=== PATIENT | female | born 1945 | race Caucasian/White ===

== ENCOUNTER 2021-07-25 00:51 | Outpatient (RCR) | payer MEDICARE, OTHER, SELFPAY ==
[2021-07-23] MEDS: Normal Saline Flush 10 ML SYR IVP (07:21)
[2021-07-23 07:49] LABS: Absolute Basophil Count 0.02 10^3/uL (0.0-0.2); Absolute Eosinophil Count 0.02 10^3/uL (0.0-0.7); Absolute Lymphocyte Count 0.76 10^3/uL (1.2-3.4); Absolute Neutrophil Count 4.46 10^3/uL (1.2-6.7); Basophils % 0.3; Eosinophils % 0.3; HCT 31.5 % (36.0-46.0); HGB 11.4 g/dL (11.2-15.7); Immature Grans % 0.3; Lymphocytes % 12.7; MCH 32.6 pg (27.0-33.0); MCHC 36.2 % (32.0-36.0); MPV 8.3 fL (8.0-11.0); Monocytes % 11.7; Neutrophils % 74.7; Nucleated RBC 0 %; Platelet Count 244 10^3/uL (130-400); RDW 12.4 % (11.7-14.6); WBC 5.98 10^3/uL (4.4-10.8)
[2021-07-23 08:02] LABS: ALT 20 U/L (14-59); AST 21 U/L (15-37); Alkaline Phosphatase 88 U/L (46-116); Anion Gap 8.3 mmol/L (3-11); BUN 15 mg/dL (7-18); Bilirubin, Total 0.9 mg/dL (0.2-1.0); CO2 25.7 mmol/L (21.0-32.0); CREATININE 0.6 mg/dL (0.55-1.02); Calcium 8.7 mg/dL (8.5-10.1); Chloride 82 mmol/L (98-107); Glucose 94 mg/dL (74-106); LDH 219 U/L (81-234); Potassium 3.6 mmol/L (3.5-5.1); Total Protein 7.3 g/dL (6.4-8.2)
[2021-07-23 08:16] LABS: Sodium 116 mmol/L (136-145)
[2021-07-23 18:36] LABS: Diff Comment Agrees w/ Instrument; RBC Morphology Normal
[2021-07-25] MEDS: Normal Saline Flush 10 ML SYR IVP (08:25)
[2021-07-25 08:52] LABS: Sodium 122 mmol/L (136-145)
== END 2021-08-04 23:59 | disposition home or self-care (01) ==
LOC: INF 00:51
PROVIDERS: Nurse Practitioner Adult Health; PCP Internal Medicine; Visit Provider Internal Medicine Medical Oncology
DX: C34.12 Malignant neoplasm of upper lobe, left bronchus or lung (principal); Z45.2 Encounter for adjustment and management of vascular access device
CPT/HCPCS: 36591; 80053; 83615; 84295; 85025

== ENCOUNTER 2021-09-01 02:28 | Outpatient (RCR) | payer MEDICARE, OTHER, SELFPAY ==
[2021-08-11] MEDS: Normal Saline Flush 10 ML SYR IVP (08:30)
[2021-08-11 08:40] LABS: Abs Immature Grans 0.05 10^3/uL (0.0-0.06); Absolute Basophil Count 0.02 10^3/uL (0.0-0.2); Absolute Eosinophil Count 0.02 10^3/uL (0.0-0.7); Absolute Lymphocyte Count 0.62 10^3/uL (1.2-3.4); Absolute Monocyte Count 1.32 10^3/uL (0.1-0.8); Absolute Neutrophil Count 1.41 10^3/uL (1.2-6.7); Basophils % 0.6; Eosinophils % 0.6; HCT 24.3 % (36.0-46.0); HGB 8.2 g/dL (11.2-15.7); Immature Grans % 1.5; MCH 32.7 pg (27.0-33.0); MCHC 33.7 % (32.0-36.0); MCV 96.8 fL (80-95); MPV 8.2 fL (8.0-11.0); Monocytes % 38.4; Neutrophils % 40.9; Nucleated RBC 0 %; Platelet Count 302 10^3/uL (130-400); RBC 2.51 10^6/uL (3.93-5.22); RDW 13.4 % (11.7-14.6); RDW-SD 47.7 fL; WBC 3.44 10^3/uL (4.4-10.8)
[2021-08-11 09:08] LABS: ALT 28 U/L (14-59); AST 20 U/L (15-37); Alkaline Phosphatase 119 U/L (46-116); Anion Gap 9.3 mmol/L (3-11); BUN 12 mg/dL (7-18); Bilirubin, Total 0.5 mg/dL (0.2-1.0); CO2 25.7 mmol/L (21.0-32.0); CREATININE 0.7 mg/dL (0.55-1.02); Calcium 8.6 mg/dL (8.5-10.1); Chloride 99 mmol/L (98-107); FREE T4 1.63 ng/dL (0.76-1.46); Glucose 122 mg/dL (74-106); Magnesium 1.8 mg/dL (1.8-2.4); Potassium 3.7 mmol/L (3.5-5.1); Sodium 134 mmol/L (136-145); TSH 1.49 uIU/mL (0.36-3.74); Total Protein 6.7 g/dL (6.4-8.2)
[2021-08-18] MEDS: Normal Saline Flush 10 ML SYR IVP (09:49)
[2021-08-18 10:05] LABS: HCT 24.6 % (36.0-46.0); HGB 8.4 g/dL (11.2-15.7); MCH 32.6 pg (27.0-33.0); MCHC 34.1 % (32.0-36.0); MCV 95.3 fL (80-95); MPV 8.4 fL (8.0-11.0); Nucleated RBC 0 %; Platelet Count 250 10^3/uL (130-400); RBC 2.58 10^6/uL (3.93-5.22); RDW 14.5 % (11.7-14.6); RDW-SD 50.1 fL; WBC 6.61 10^3/uL (4.4-10.8)
[2021-08-18 10:22] LABS: Absolute Lymphocyte Count 2.05 10^3/uL (1.2-3.4); Absolute Neutrophil Count 3.17 10^3/uL (1.2-6.7); Atypical Lymphocytes % 1; Bands % 3
[2021-08-18 10:23] LABS: Absolute Basophil Count 0.07 10^3/uL (0.0-0.2); Absolute Eosinophil Count 0.07 10^3/uL (0.0-0.7); Absolute Monocyte Count 0.46 10^3/uL (0.1-0.8); Diff Comment Manual Differential; Other Cells % 12; RBC Morphology Normal
[2021-08-18 10:29] LABS: ALT 26 U/L (14-59); AST 21 U/L (15-37); Albumin 3.3 g/dL (3.4-5.0); Alkaline Phosphatase 111 U/L (46-116); Anion Gap 7.6 mmol/L (3-11); BUN 9 mg/dL (7-18); Bilirubin, Total 0.7 mg/dL (0.2-1.0); CO2 28.4 mmol/L (21.0-32.0); CREATININE 0.6 mg/dL (0.55-1.02); Calcium 8.3 mg/dL (8.5-10.1); Chloride 95 mmol/L (98-107); FREE T4 1.39 ng/dL (0.76-1.46); Glucose 98 mg/dL (74-106); LDH 278 U/L (81-234); Magnesium 1.3 mg/dL (1.8-2.4); Potassium 3.2 mmol/L (3.5-5.1); Sodium 131 mmol/L (136-145); TSH 2.99 uIU/mL (0.36-3.74)
[2021-08-18 10:37] LABS: Iron 70 ug/dL (50-170); Total Iron Binding Capacity 224 ug/dL (250-450)
[2021-08-18 11:06] LABS: Ferritin 426 ng/mL (8-252); Folate 8.8 ng/mL (8.6-20.0); Vitamin B12 377 pg/mL (193-986)
== END 2021-09-04 23:59 | disposition home or self-care (01) ==
LOC: INF 02:28
PROVIDERS: PCP Internal Medicine; Visit Provider Internal Medicine Medical Oncology
DX: C34.12 Malignant neoplasm of upper lobe, left bronchus or lung (principal); Z79.899 Other long term (current) drug therapy; Z45.2 Encounter for adjustment and management of vascular access device
CPT/HCPCS: 36591; 80053; 82607; 82728; 82746; 83540; 83550; 83615; 83735; 84439; 84443; 85025

== ENCOUNTER 2021-09-15 01:46 | Outpatient (RCR) | payer MEDICARE, OTHER, SELFPAY ==
[2021-09-08 08:17] LABS: Abs Immature Grans 0.11 10^3/uL (0.0-0.06); Absolute Basophil Count 0.03 10^3/uL (0.0-0.2); Absolute Eosinophil Count 0.04 10^3/uL (0.0-0.7); Absolute Lymphocyte Count 1.35 10^3/uL (1.2-3.4); Absolute Monocyte Count 1.07 10^3/uL (0.1-0.8); Absolute Neutrophil Count 1.28 10^3/uL (1.2-6.7); Basophils % 0.8; HCT 24.5 % (36.0-46.0); HGB 8.2 g/dL (11.2-15.7); Immature Grans % 2.8; Lymphocytes % 34.8; MCH 32.7 pg (27.0-33.0); MCHC 33.5 % (32.0-36.0); MCV 97.6 fL (80-95); MPV 8.6 fL (8.0-11.0); Monocytes % 27.6; Nucleated RBC 0 %; Platelet Count 240 10^3/uL (130-400); RBC 2.51 10^6/uL (3.93-5.22); RDW 15.5 % (11.7-14.6); RDW-SD 55.8 fL; WBC 3.88 10^3/uL (4.4-10.8)
[2021-09-08] MEDS: Normal Saline Flush 10 ML SYR IVP (08:21)
[2021-09-08 08:38] LABS: ALT 23 U/L (14-59); AST 27 U/L (15-37); Albumin 3.2 g/dL (3.4-5.0); Alkaline Phosphatase 112 U/L (46-116); Anion Gap 6.2 mmol/L (3-11); BUN 14 mg/dL (7-18); Bilirubin, Total 0.3 mg/dL (0.2-1.0); CO2 26.8 mmol/L (21.0-32.0); CREATININE 0.6 mg/dL (0.55-1.02); Calcium 8.3 mg/dL (8.5-10.1); Chloride 95 mmol/L (98-107); FREE T4 1.22 ng/dL (0.76-1.46); Glucose 89 mg/dL (74-106); Magnesium 1.6 mg/dL (1.8-2.4); Sodium 128 mmol/L (136-145); TSH 2.81 uIU/mL (0.36-3.74); Total Protein 6.6 g/dL (6.4-8.2)
[2021-09-15] MEDS: Normal Saline Flush 10 ML SYR IVP (08:20)
[2021-09-15 08:30] LABS: Abs Immature Grans 0.03 10^3/uL (0.0-0.06); Absolute Basophil Count 0.03 10^3/uL (0.0-0.2); Absolute Eosinophil Count 0.03 10^3/uL (0.0-0.7); Absolute Lymphocyte Count 1.07 10^3/uL (1.2-3.4); Absolute Neutrophil Count 3.92 10^3/uL (1.2-6.7); Basophils % 0.5; Eosinophils % 0.5; HCT 25.5 % (36.0-46.0); HGB 8.8 g/dL (11.2-15.7); Immature Grans % 0.5; Lymphocytes % 17.6; MCH 32.8 pg (27.0-33.0); MCHC 34.5 % (32.0-36.0); MCV 95.1 fL (80-95); MPV 8.7 fL (8.0-11.0); Monocytes % 16.4; Neutrophils % 64.5; Nucleated RBC 0 %; Platelet Count 281 10^3/uL (130-400); RBC 2.68 10^6/uL (3.93-5.22); RDW 14.8 % (11.7-14.6); RDW-SD 51.9 fL; WBC 6.08 10^3/uL (4.4-10.8)
[2021-09-15 09:09] LABS: ALT 23 U/L (14-59); AST 19 U/L (15-37); Albumin 3.2 g/dL (3.4-5.0); Alkaline Phosphatase 108 U/L (46-116); BUN 13 mg/dL (7-18); Bilirubin, Total 0.3 mg/dL (0.2-1.0); CREATININE 0.5 mg/dL (0.55-1.02); Calcium 8.3 mg/dL (8.5-10.1); Chloride 93 mmol/L (98-107); FREE T4 1.05 ng/dL (0.76-1.46); Glucose 96 mg/dL (74-106); Potassium 4.2 mmol/L (3.5-5.1); Total Protein 6.5 g/dL (6.4-8.2)
[2021-09-15 09:10] LABS: Sodium 125 mmol/L (136-145)
[2021-09-15 10:32] LABS: Magnesium 1.6 mg/dL (1.8-2.4)
== END 2021-10-04 23:59 | disposition home or self-care (01) ==
LOC: INF 01:46
PROVIDERS: PCP Internal Medicine; Visit Provider Internal Medicine Medical Oncology
DX: C34.12 Malignant neoplasm of upper lobe, left bronchus or lung (principal); Z79.899 Other long term (current) drug therapy; Z45.2 Encounter for adjustment and management of vascular access device
CPT/HCPCS: 36591; 80053; 83735; 84439; 84443; 85025

== ENCOUNTER 2021-10-27 02:33 | Outpatient (RCR) | payer MEDICARE, OTHER, SELFPAY ==
--- OUTSIDE RECORDS SUMMARY | 2021-10-06 01:18 | XMS_ITS ---
:1945 Author Care Team Providers Name Role Phone JEAN-PIERRE CUEVAS MD Primary Care Provider [phone] SAPNA MELISSA MD General Surgeon [phone] CHIKA HAYDEN MD Urologist [phone] Allergies Code Code System Name Reaction Severity Status Onset 019116 RxNorm Chantix ? ? Active ? 534981 RxNorm Oxycontin ? ? Active ? 043759 RxNorm Vicodin ? ? Active ? Medications Name Status Start Date Stop Date ? ? acetaminophen 500 mg tablet Active ? Not available Take 1 tablet every 6 hours by oral route as needed. amlodipine 5 mg tablet Active ? Not avail able amoxicillin 500 mg capsule Completed 09/10/200410/01 1 Cap: TID Arimidex 1 mg tablet Completed 02/18/2010 02/18/2010 1 (one) Tablet: daily Aspir-81 mg tablet,delayed release Completed 11/10/2012 04/22/[address]: daily atorvastatin 10 mg tablet Completed ? 2017 atorvastatin 20 mg tablet Active ? Not av ailable cetirizine 10 mg tablet Completed 05/06/2012 04/22/20 15 1 Tablet: as needed Chantix Starting Month Box 0.5 mg (11)-1 mg (42) tablets in dose pack Completed 06/23/2011 06/23/2011 1 Tablet: daily ciprofloxacin 250 mg tablet Completed ? 10/05 2 tabs now ciprofloxacin 500 mg tablet Completed ? 10/05 Take 1 tablet every 12 hours by oral route. cyclobenzaprine 10 mg tablet Completed ? 05/2018 Elidel 1 % topical cream Completed 09/21/2005 006 1 (one) ftu: BID fexofenadine 180 mg tablet Completed 06/24/200906/24 1 (one) Tablet: daily Flovent HFA 44 mcg/actuation aerosol inhaler Active ? Not available Inhale 2 puffs twice a day by inhalation route. fluticasone propionate 50 Completed ? 2017 mcg/actuation nasal spray,suspension hydrochlorothiazide 25 mg tablet Active ? Not available hydrocodone 5 mg-acetaminophen 325 mg tablet Completed 05/06/2012 1 (one) Tablet: every four to six hours as needed ibuprofen 200 mg tablet Completed ? 10/19/19 20 Take 1 tablet every 6 hours by oral route as needed. ibuprofen 800 mg tablet Completed 02/18/2010 02/19/20 10 1 Tablet: Three times daily as needed levothyroxine 100 mcg tablet Completed ? 05/2018 levothyroxine 112 mcg tablet Active ? Not available methylprednisolone 4 mg tablets in Completed ? 02/16/2018 a dose pack metoprolol tartrate 50 mg tablet Active ? Not available Miralax 17 gram oral powder packet Completed 12/26/2015 12/26/2015 1 (one) Packet: daily as needed Mylanta Maximum Strength 400 mg-400 mg-40 mg/5 mL oral suspe nsion Completed 09/11/2013 09/11/2013 1 Suspension: as needed nicotine 21 mg/24 hr daily transdermal patch Completed 04/06/2007 1 (one) Patch 24HR: Daily omeprazole 40 mg capsule,delayed release Active ? Not available Take 1 capsule every day by oral route. Patanol 0.1 % eye drops Completed 07/27/2006 07/27/19 07 1-2 drop(s): BID Percocet 5 mg-325 mg tablet Completed 06/24/200906/07 1-2 Tablet: every 4-6 hours as needed for pain phenazopyridine 95 mg tablet Completed ? 2 tabs now potassium chloride ER 20 mEq Active ? Not available tablet,extended release(part/cryst) Protonix 40 mg tablet,delayed release Completed 07/23/2010 07/23/2010 1 (one) Tab DR: daily Readi-Cat 2 2 % (w/v) oral Completed ? suspension Senna Laxative 8.6 mg tablet Completed 05/07/201506/2014 2 (two) Tablet Tablet: nightly tramadol 50 mg tablet Completed ? 02/16/2018 tretinoin 0.025 % topical cream Completed 02/03/2009 06/03/2009 Ventolin HFA 90 mcg/actuation aerosol inhaler Active ? Not available Inhale 2 puffs every 4 hours by inhalation route as needed. Wellbutrin SR 100 mg tablet, 12 hr sustained-release Completed ? 10/19/2019 Take 1 tablet twice a day by oral route. Zithromax Z-Frank 250 mg tablet Completed 05/06/2012 1 Tablet: See note below zolpidem 10 mg tablet Completed ? 10/19/2019 Zyban 150 mg tablet,extended release Completed 10/01/2008 10/01/2008 1 Tablet ER 12HR: See NOtes Problems Name Status Onset Date Source ? Non-small Cell Lung Cancer Active 09/14/2019 ? Chronic Obstructive Lung Disease Active 09/14/2019 ? Gastroesophageal Reflux Disease Active 09/14/2019 ? Blood in Urine Active 09/14/2019 ? Disorder of Thyroid Gland Active 10/05/2019 ? Urinary Tract Infectious Disease Active 10/05/2019 ? Urinary Incontinence Active 10/05/2019 ? History of Calculus of Kidney Active 10/05/2019 ? Neoplasm of Bladder Active 10/26/2019 ? Primary Malignant Neoplasm of Female Active ? History Breast Hypothyroidism Active ? History Hyperlipidemia Active ? History Severe Obesity Active ? History Overweight Active ? History Nicotine Dependence Active ? History Nerve Root Disorder Active ? History Chronic Allergic Conjunctivitis Active ? History Hypertensive Disorder Active ? History Premature Beats Active ? 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 History Chronic Constipation Active ? History Atopic Dermatitis Active ? History Contact Dermatitis Active ? History Itching Active ? History Low Back Pain Active ? History Bone Density Finding Active ? History Eruption Active ? History Disorder of Hyperalimentation Active ? Hi story Abdominal Pain Active ? History Inconclusive Evaluation Finding Active ? History Abnormal Findings on Diagnostic Imaging Active ? History of Breast Administration of Pneumococcal Vaccine Active ? History Disorder of Skin And/or Subcutaneous Active ? History Tissue Adult Health Examination Active ? History Screening Mammography Active ? History Pain of Left Hip Joint Active ? History Procedure by Method Active ? History Trigger Finger of Right Hand Active ? His tory Adhesive Capsulitis of Left Shoulder Active ? History Menopause Present Active ? History Respiratory Crackles Active ? History Cardiac Arrhythmia Active ? History Procedures Date Name Performed by ? 10/26/2019 Cystourethroscopy, with Information not available Fulguration/resection of Bladder Tumors (Surg) 03/30/2006 Cholecystectomy Information not avai lable 06/07/1970 Tubal Ligation Information not avai lable ? Thoracoscopic Surgical Lobectomy Using V ideo-assisted Guidance Information not available Notes: Dr. Torres at [place] ? Appendectomy Information not avai lable ? Lumpectomy Information not avai lable Notes: December 2004, Right breast, follo wed by radiation 02/16/2018 Unlisted Imaging Order [facility] (Internal) [address] [place] [address] (Work Place) 09/19/2019 CT, Urogram [facility] (Internal) [address] [place] [address] (Work Place) Results Lab Results Date Name Specimen Result Interpretation Description Value Range Status Address ? 08/05/2020 CBC W/ Auto BLD ? Wbc 6.8 10*3/uL 5.0-10.0 F inal [place] Diff 10*3/uL [facility] L [facility] (Internal) : [address] ? ? BLD Low Rbc 3.65 10*6/uL 4.10-5.30 Final N orth 10*6/uL [facility] (Internal) : [address] t ? ? BLD Low Hgb 11.0 g/dL 12.0-16.0 Final Nort h g/dL [facility] L [facility] (Internal) : [address] t ? ? BLD Low Hct 32.9 % 37.0-47.0 Final [facility] L ab (Internal) : [address] t ? ? BLD ? Mcv 90.1 fL 80.0-96.0 Final [facility] L ab (Internal) : [address] t ? ? BLD ? Mch 30.1 pg 26.0-32.0 Final [facility] L [facility] (Internal) : [address] t ? ? BLD ? Mchc 33.4 g/dL 31.0-35.0 Final Nort h g/dL [facility] L [facility] (Internal) : [address] t ? ? BLD ? Rdw 12.7 % 11.5-14.5 Final [facility] L [facility] (Internal) : [address] t ? ? BLD ? Plt 243 10*3/uL 130-450 Final Nort h 10*3/uL [facility] L [facility] (Internal) : [address] ? ? BLD ? Anc 4.58 10*3/uL ? Final Nort h [facility] (Internal) : [address] ? ? BLD ? Nlr 3.16 0.00-3.20 Final [facility] L [facility] (Internal) : [address] t ? ? BLD ? Neutro 67.5 % 40.0-75.0 Final [facility] L ab (Internal) : [address] ? ? BLD ? Lymph 21.3 % 20.0-50.0 Final [facility] L [facility] (Internal) : [address] ? ? BLD ? [place] 9.1 % 2.0-10.0 Final [facility] L ab (Internal) : [address] t ? ? BLD ? Eos 1.0 % 1.0-6.0 % Final [facility] L ab (Internal) : [address] t ? ? BLD ? Baso 0.7 % 0.0-1.0 % Final [facility] L [facility] (Internal) : [address] t ? ? BLD ? Ig 0.4 % 0.0-0.9 % Final [facility] (Internal) : [address] 08/05/2020 CMP, Serum S ? g/r 99 mg/dL 74-106 Final North or Plasma mg/dL [facility] (Internal) : [address] ? ? S ? Bun 13 mg/dL 7-17 Final [facility] mg/dL [facility] (Internal) : [address] t ? ? S ? Crea 0.70 mg/dL 0.52-1.04 Final Nor th mg/dL [facility] (Internal) : [address] ? ? S ? Ca 9.3 mg/dL 8.4-10.2 Final North mg/dL [facility] (Internal) : [address] ? ? S Low Na 130 mmol/L 137-145 Final North mmol/L [facility] (Internal) : [address] t ? ? S ? K 4.4 mmol/L 3.5-5.1 Final [place] mmol/L [facility] (Internal) : [address] t ? ? S Low Cl 95 mmol/L 98-107 Final [place] mmol/L [facility] (Internal) : [address] t ? ? S ? Tco2 25.0 mmol/L 22.0-30.0 Final No rth mmol/L [facility] : [address] t ? ? S ? Tp 7.2 g/dL 6.3-8.2 Final [place] g/dL [facility] : [address] t ? ? S ? Alb 4.2 g/dL 3.5-5.0 Final [facility] g/dL [facility] : [address] t ? ? S ? Tbil <1.0 mg/dL 0.2-1.3 Final [place] mg/dL [facility] (Internal) : [address] t ? ? S ? Alp 90 U/L 38-126 Final [facility] U/L [facility] (Internal) : [address] t ? ? S ? Alt 20 U/L 9-52 U/L Final [place] (Sgpt) [facility] (Internal) : [address] t ? ? S High Ast 37 U/L 14-36 U/L Final [place] (Sgot) [facility] (Internal) : [address] 08/05/2020 D-dimer, PLASMA High Dimq 0.69 mg/L 0.00-0.50 Final [place] Quant, mg/L [facility] (Internal[facility] : [address] 08/05/2020 BNP (B-type S High Nt-probnp 1580 pg/mL 0-125 Final [place] Natriuretic pg/mL Count ry Peptide), Hospita l Lab Prohormone (Inter nal): N-terminal, [address] [place] Immunoassay , Blood 08/05/2020 Troponin I, S ? Trop <0.06 NG/mL 0.00-0.06 Final [place] Serum or NG/mL [facility] (Internal[facility] : [address] 11/06/2019 Culture UR ? Final microbiology ? Final [place] ([place] results Country Count), Hospital Lab Urine (Internal) : [address] t 11/06/2019 Urinalysis, Urine ? Color Yellow ? ? P _urology: Dipstick, clean [address] catch [facility] [employer], [place] ? ? Urine ? Appearanc Clear ? ? P_urol ogy: clean e [address], [place] ? ? Urine ? Glucose Normal ? ? P_urolog y: clean [address], [place] ? ? Urine ? Bilirubin Negative ? ? P_ur ology: clean [address], [place] ? ? Urine ? Ketones Negative ? ? [facility] ? ? Urine ? Specific 1.015 ? ? P_urolo gy: clean [place] [address] l [employer] [facility] ? ? Urine ? Blood Moderate ? ? P_urolog y: clean [facility] ? ? Urine ? Ph 7.0 ? ? P_urology: clean [facility] ? ? Urine ? Protein Negative ? ? P_urol ogy: clean [address] [employer], [place] ? ? Urine ? Urobilino 0.2 ? ? P_urol ogy: clean gen [facility] ? ? Urine ? Nitrite negative ? ? P_urol ogy: clean [facility] ? ? Urine ? Leukocyte Moderate ? ? P_ur ology: clean Esterase [facility] 10/26/2019 Pathology TISS ? Report (see below) ? [facility]Internal[facility] : [address] 10/06/2019 Culture UR ? Final microbiology ? Final [place] ([place] results Country Count), Hospital Lab Urine (Internal) : [address] t 10/06/2019 Cytology, TISS ? Report (see below) ? [facility] Non-gynecol Count ry ogical, Hospital Lab Unspecified (Inte rnal): Specimen [address] t 10/06/2019 Urinalysis, Urine ? Color Yellow ? ? P _urology: Dipstick, [address], [place] ? ? Urine ? Appearanc Clear ? ? P_urol ogy: e [address] [employer], [place] ? ? Urine ? Glucose Normal ? ? P_urolog y: [address] [employer] [place] ? ? Urine ? Bilirubin Negative ? ? P_ur ology: [address] [employer] [place] ? ? Urine ? Ketones Negative ? ? P_urol ogy: [address] [employer] [place] ? ? Urine ? Specific 1.020 ? ? P_urolo gy: [place] [address], [place] ? ? Urine ? Blood Large ? ? P_urology: [address] [employer] [place] ? ? Urine ? Ph 7.0 ? ? P_urology: [address] [employer] [place] ? ? Urine ? Protein Negative ? ? P_urol ogy: 41 [employer] [place] ? ? Urine ? Urobilino 0.2 ? ? P_urol ogy: gen [address] [employer] [place] ? ? Urine ? Nitrite negative ? ? P_urol ogy: [address] [employer] [place] ? ? Urine ? Leukocyte Large ? ? P_urol ogy: Esterase [address] [place] [address] [employer], [place] 09/19/2019 Urinalysis, Urine ? Color Red ? ? P _urology: Dipstick, clean [address], [place] ? ? Urine ? Appearanc Cloudy ? ? P_urol ogy: clean e [address] [employer] [place] ? ? Urine ? Glucose Normal ? ? P_urolog y: clean [address], [place] ? ? Urine ? Bilirubin Negative ? ? P_ur ology: clean [address] [employer] [place] ? ? Urine ? Ketones Negative ? ? P_urol ogy: clean [address] [employer] [place] ? ? Urine ? Specific 1.010 ? ? P_urolo gy: clean [place] [address] [place] [employer], [place] ? ? Urine ? Blood Large ? ? P_urology: clean [address] [employer] [place] ? ? Urine ? Ph 7.0 ? ? P_urology: clean [address] [employer] [place] ? ? Urine ? Protein Trace ? ? P_urolog y: clean 41 Medical catch [facility] ? ? Urine ? Urobilino 0.2 ? ? P_urol ogy: clean gen [address] [employer] [facility] ? ? Urine ? Nitrite negative ? ? P_urol ogy: clean [address] [employer] [facility] [employer], [place] ? ? Urine ? Leukocyte Trace ? ? P_urol ogy: clean Esterase 41 Medic al catch [facility] 08/18/2018 BMP, Serum S High g/r 107 mg/dL 74-106 Final [facility] or Plasma mg/dL [facility]Internal[facility] : [address] ? ? S High Bun 20 mg/dL 7-17 Final [facility] mg/dL [facility] (Internal[facility] : [address] ? ? S - Crea 0.70 mg/dL 0.52-1.04 Final Nor th mg/dL [facility] (Internal) : [address] ? ? S - Ca 9.0 mg/dL 8.4-10.2 Final [facility] mg/dL [facility] (Internal[facility] : [address] ? ? S Low Na 134 mmol/L 137-145 Final [facility] mmol/L [facility] (Internal[facility] : [address] ? ? S Low K 3.2 mmol/L 3.5-5.1 Final [facility] mmol/L [facility] (Internal[facility] : [address] ? ? S Low Cl 93 mmol/L 98-107 Final [facility] mmol/L [facility] (Internal[facility] : [address] ? ? S - Tco2 28.0 mmol/L 22.0-30.0 Final No rth mmol/L [facility] (Internal) : [address] [facility] 06/01/2018 Amylase, S - Jennifer 80 U/L 30-110 Final Nort h Serum or U/L [facility] (Internal) : [address] [facility] 06/01/2018 Lipase, S - Lip 53 U/L 23-300 Final North Serum or U/L [facility] (Internal) : [address] [facility] 06/01/2018 CMP, Serum S High g/r 109 mg/dL 74-106 Final [facility] or Plasma mg/dL [facility] (Internal[facility] : [address] ? ? S High Bun 22 mg/dL 7-17 Final [facility] mg/dL [facility] (Internal[facility] : [address] ? ? S - Crea 0.70 mg/dL 0.52-1.04 Final Nor th mg/dL [facility] (Internal[facility] : [address] ? ? S - Ca 9.2 mg/dL 8.4-10.2 Final [facility] mg/dL [facility] (Internal[facility] : [address] ? ? S Low Na 134 mmol/L 137-145 Final [facility] mmol/L [facility] (Internal[facility] : [address] ? ? S Low K 3.3 mmol/L 3.5-5.1 Final [facility] mmol/L [facility] (Internal[facility] : [address] ? ? S Low Cl 93 mmol/L 98-107 Final [facility] mmol/L [facility] (Internal) : [address] ? ? S - Tco2 29.0 mmol/L 22.0-30.0 Final No rth mmol/L [facility] (Internal) : [address] ? ? S - Tp 7.2 g/dL 6.3-8.2 Final [facility] g/dL [facility] ([facility] : [address] ? ? S - Alb 4.0 g/dL 3.5-5.0 Final [facility] g/dL [facility] (Internal[facility] : [address] ? ? S - Tbil 0.4 mg/dL 0.2-1.3 Final [facility] mg/dL [facility] (Internal[facility] : [address] ? ? S - Alp 100 U/L 38-126 Final [facility] U/L [facility] ([facility] : [address] ? ? S - Alt 36 U/L 9-52 U/L Final [facility] (Sgpt) [facility]Internal[facility] : [address] ? ? S - Ast 35 U/L 14-36 U/L Final [place] (Sgot) [facility] (Internal) : [address] [facility] 06/01/2018 Fecal STL - Occ Bld negative negative Final [place] Occult [facility] Blood, [facility] L ab Stool (Internal) : [address] [facility] 03/08/2018 Pathology TISS - Report results below ? Fi nal [place] Study [facility] (Internal) : [address] [facility] 02/16/2018 Platelets, BLD - Plt 253 10*3/uL 130-450 Fin [facility] Auto, Blood 10*3/uL [facility] Hospital L ab (Internal) : [address] [facility] 02/16/2018 Partial BLD - PTT (Ip) 25 s 22-35 s Final N orth Thromboplas Count ry [facility] Hospital Lab (Internal) : [address] [facility] 02/16/2018 Creatinine, S - Crea 0.70 mg/dL 0.52-1.04 F inal [place] Serum or mg/dL [facility] Hospital L ab (Internal) : [address] [facility] 02/16/2018 Prothrombin BLD - Pt 9.8 S 9.1-11.7 Final [facility] Hospital L ab (Internal) : [address] ? ? BLD - Inr 0.9 ? Final [facility] L ab (Internal) : [address] [facility] 03/23/2017 Venipunctur BLD ? Venpn* ? ? Final [place] e [facility] (Internal) : [address] 03/23/2017 CMP, Serum S ? g/r 86 mg/dL 74-106 Final [place] or Plasma mg/dL [facility] (Internal) : [address] ? ? S ? Bun 13 mg/dL 7-17 Final [place] mg/dL [facility] (Internal) : [address] ? ? S ? Crea 0.80 mg/dL 0.52-1.04 Final [facility] th mg/dL [facility] L [facility] (Internal) : [address] ? ? S ? Ca 9.5 mg/dL 8.4-10.2 Final [place] mg/dL [facility] (Internal[facility] : [address] ? ? S ? Na 138 mmol/L 137-145 Final [place] mmol/L [facility] (Internal) : [address] ? ? S ? K 3.8 mmol/L 3.5-5.1 Final [place] mmol/L [facility] L [facility] (Internal) : [address] ? ? S ? Cl 101 mmol/L 98-107 Final [place] mmol/L [facility] L [facility] (Internal) : [address] ? ? S ? Tco2 29.0 mmol/L 22.0-30.0 Final No rth mmol/L [facility] L [facility] (Internal) : [address] ? ? S ? Tp 7.3 g/dL 6.3-8.2 Final [place] g/dL [facility] (Internal) : [address] ? ? S ? Alb 4.3 g/dL 3.5-5.0 Final [place] g/dL [facility] (Internal) : [address] ? ? S ? Tbil 0.4 mg/dL 0.2-1.3 Final [place] mg/dL [facility] L [facility] (Internal) : [address] ? ? S ? Alp 66 U/L 38-126 Final [place] U/L [facility] L ab (Internal) : [address] ? ? S ? Alt 25 U/L 9-52 U/L Final [place] (Sgpt) [facility] (Internal) : [address] ? ? S ? Ast 21 U/L 14-36 U/L Final [place] (Sgot) [facility] L [facility] (Internal) : [address] 03/23/2017 Partial BLD ? APTT (Op) 24 s 22-35 s Final [place] Thromboplas Count ry [facility] Lab (Internal) : [address] t 03/23/2017 Prothrombin BLD ? Pt 9.8 S 9.1-11.7 Final [facility] (Internal) : [address] ? ? BLD ? Inr 0.9 ? Final [facility] Hospital L ab (Internal) : [address] 03/23/2017 TSH, Serum S High Tsh 4.70 u[IU]/mL 0.47-4.68 Final [facility] Plasma u[IU]/mL Count Hospital L ab (Internal) : [address] 03/23/2017 Cbc BLD ? Wbc 7.3 10*3/uL 5.0-10.0 Final [place] 10*3/uL [facility] L [facility] (Internal) : [address], [address] t ? ? BLD Low Rbc 4.08 10*6/uL 4.10-5.30 Final N orth 10*6/uL [facility]Internal[facility] : [address] ? ? BLD ? Hgb 12.9 g/dL 12.0-16.0 Final Nort h g/dL [facility] L [facility] (Internal) : [address] ? ? BLD ? Hct 37.7 % 37.0-47.0 Final [facility] L ab (Internal) : [address] ? ? BLD ? Mcv 92.4 fL 80.0-96.0 Final [facility] Hospital L ab (Internal) : [address] ? ? BLD ? Mch 31.6 pg 26.0-32.0 Final [facility] L ab (Internal) : [address] t ? ? BLD ? Mchc 34.2 g/dL 31.0-35.0 Final Nort h g/dL [facility] L ab (Internal) : [address] ? ? BLD ? Rdw 12.6 % 11.5-14.5 Final [facility] L ab (Internal) : [address], [place] j t ? ? BLD ? Plt 238 10*3/uL 130-450 Final Nort h 10*3/uL [facility] L [facility] (Internal) : [address] ? ? BLD ? Anc 3.61 10*3/uL ? Final Nort h [facility] L ab (Internal) : [address] 09/28/2016 Venipunctur BLD ? Venpn* ? ? Final [place] e [facility] (Internal) : [address] 09/28/2016 Ca 15-3, S ? Cancer Ag 9.1 U/mL <30 U/mL Fin [facility] Serum 15-3, (Ca Country 15-3), S Hospital Lab (Internal) : [address] w[address]ins 09/28/2016 TSH, Serum S ? Tsh 2.23 u[IU]/mL 0.47-4.68 Final [place] or Plasma u[IU]/mL Count Hospital L ab (Internal) : [address] 09/28/2016 CBC W/ Auto BLD ? Wbc 6.4 10*3/uL 5.0-10.0 F inal [place] Diff 10*3/uL [facility] L ab (Internal) : [address] t ? ? BLD ? Rbc 4.39 10*6/uL 4.10-5.30 Final N orth 10*6/uL [facility] L [facility] (Internal) : [address] t ? ? BLD ? Hgb 13.6 g/dL 12.0-16.0 Final Nort h g/dL [facility] L ab (Internal) : [address] t ? ? BLD ? Hct 40.3 % 37.0-47.0 Final [facility] L ab (Internal) : [address] t ? ? BLD ? Mcv 91.8 fL 80.0-96.0 Final [facility] L ab (Internal) : [address] ? ? BLD ? Mch 31.0 pg 26.0-32.0 [address] [place] pg [facility] L ab (Internal) : [address] t ? ? BLD ? Mchc 33.7 g/dL 31.0-35.0 Final Nort h g/dL [facility] L ab (Internal) : [address] t ? ? BLD ? Rdw 12.2 % 11.5-14.5 Final [facility] L ab (Internal) : [address] ? ? BLD ? Plt 227 10*3/uL 130-450 Final Nort h 10*3/uL [facility] L ab (Internal) : [address] t ? ? BLD ? Anc 3.72 10*3/uL ? Final Nort [facility]) : [address] ? ? BLD ? Neutro 58.4 % 40.0-75.0 [facility] : [address] ? ? BLD ? Lymph 32.2 % 20.0-50.0 Final [facility] : [address] t ? ? BLD ? [place] 7.5 % 2.0-10.0 Final [facility] : [address] t ? ? BLD ? Eos 1.1 % 1.0-6.0 % Final [facility] ([facility]) : [address] t ? ? BLD ? Baso 0.5 % 0.0-1.0 % Final [facility] ([facility]) : [address] t ? ? BLD ? Ig 0.3 % 0.0-0.9 % Final [facility] ([facility]) : [address] 09/28/2016 Lipid S ? Chol 194 mg/dL 50-200 Final [facility] Panel, mg/dL [facility] : [address] t ? ? S ? Trig 131 mg/dL 10-150 [facility] mg[facility] : [address] t ? ? S ? Hdl 51 mg/dL 40-60 Final [facility] mg/dL [facility] : [address] t ? ? S ? Ldl 117 mg/dL 0-130 [facility] mg/dL [facility] : [address] t 09/28/2016 CMP, Serum S ? g/r 100 mg/dL 74-106 Final [facility] or Plasma mg/dL [facility] : [address] t ? ? S High Bun 18 mg/dL 7-17 Final [facility] mg/dL [facility] : [address] t ? ? S ? Crea 0.70 mg/dL 0.52-1.04 Final [facility] mg/dL [facility] : [address] ? ? S ? Ca 9.4 mg/dL 8.4-10.2 [facility] mg/dL [facility] : [address] ? ? S ? Na 139 mmol/L 137-145 [facility] mmol/L [facility] : [address] t ? ? S ? K 4.0 mmol/L 3.5-5.1 [facility] mmol/L [facility] : [address] t ? ? S ? Cl 104 mmol/L 98-107 [facility] mmol/L [facility] : [address] t ? ? S ? Tco2 24.0 mmol/L 22.0-30.0 Final No rth mmol/L [facility] : [address] t ? ? S ? Tp 7.4 g/dL 6.3-8.2 [facility] g/dL [facility] : [address] t ? ? S ? Alb 4.3 g/dL 3.5-5.0 [facility] g/dL [facility] : [address] t ? ? S ? Tbil 0.5 mg/dL 0.2-1.3 [facility] mg/dL [facility] : [address] t ? ? S ? Alp 78 U/L 38-126 Final [facility] U/L [facility] : [address] t ? ? S ? Alt 33 U/L 9-52 U/L Final [facility] : [address] t ? ? S ? Ast 24 U/L 14-36 U/L Final [facility] : [address] t Past Encounters None recorded. Social History Tobacco Smoking Status Former Smoker Notes: quit Vaccine List Vaccine Type COVID-19, mRNA, LNP-S, PF, 100 mcg/0.5 m L dose (Moderna) 08/23/2020?100 mcg influenza, seasonal, injectable 02/14/2013 02/26/2014 02/24/2016?0.5 mL influenza, seasonal, injectable, preserv ative free 02/23/2015 pneumococcal conjugate PCV 13 12/26/2015?0.5 mL pneumococcal polysaccharide PPV23 06/15/2014?0.5 mL Tdap 06/07/2001 zoster live 03/12/2014 Plan of Care Reminders Provider Appointments None ? ? recorded. Lab None ? ? recorded. Referral None ? ? recorded. Procedures None ? ? recorded. Surgeries None ? ? recorded. Imaging None ? ? recorded. Vitals 11/06/2019 09:00AM Acute 15 Height Blood Pressure 165.1 cm 138/78 mm[Hg] 10/06/2019 02:15PM Procedure 30 Height Weight BMI 165.1 cm 90.26 kg 33.1 kg/m2 09/19/2019 03:00PM Office 15 Height Weight BMI Blood Pressure 165.1 cm 89.58 kg 32.9 kg/m2 164/76 mm[Hg] 09/19/2019 BMI 32.9 kg/m2 04/12/2018 09:00AM Consult 30 Height 165.1 cm 02/16/2018 11:00AM Office 30 Height Weight BMI 165.1 cm 78.47 kg 28.8 kg/m2 06/29/2016 Weight Blood Pressure 75.75 kg 148/64 mm[Hg] 05/05/2016 Weight Blood Pressure 76.07 kg 124/70 mm[Hg] 01/17/2016 Height Weight Blood Pressure 161.29 cm 74.48 kg 158/70 mm[Hg] 12/26/2015 Height Weight Blood Pressure 161.29 cm 74.53 kg 130/60 mm[Hg] 09/27/2015 Height Weight Blood Pressure 162.56 cm 73.94 kg 130/72 mm[Hg] 07/29/2015 Height Weight Blood Pressure 162.56 cm 73.94 kg 132/68 mm[Hg] 07/05/2015 Height Weight Blood Pressure 162.56 cm 73.94 kg 136/76 mm[Hg] 05/07/2015 Height Weight Blood Pressure 162.56 cm 73.94 kg 132/62 mm[Hg] 04/22/2015 Weight Blood Pressure 74.48 kg 150/60 mm[Hg] 11/27/2014 Weight Blood Pressure 78.61 kg 132/66 mm[Hg] 10/02/2014 Height Weight Blood Pressure 161.29 cm 78.24 kg (1) 128/62 mm[Hg] (2) 132/60 mm[Hg] 09/24/2014 Weight 77.93 kg 06/08/2014 Weight Blood Pressure 77.93 kg 150/72 mm[Hg] 04/03/2014 Height Weight Blood Pressure 161.29 cm 75.98 kg (1) 140/72 mm[Hg] (2) 136/72 mm[Hg] 11/15/2013 Height Weight Blood Pressure 161 cm 77.7 kg 122/76 mm[Hg] 09/11/2013 Height Weight Blood Pressure 161.29 cm 77.56 kg (1) 122/54 mm[Hg] (2) 118/60 mm[Hg] 05/23/2013 Height Weight Blood Pressure 161.29 cm 78.7 kg 140/80 mm[Hg] 05/02/2013 Height Blood Pressure 161.29 cm (1) 128/72 mm[Hg] (2) 130/62 mm[Hg] 04/05/2013 Weight Blood Pressure 79 kg 140/70 mm[Hg] 11/10/2012 Height Weight Blood Pressure 161.29 cm 80.51 kg (1) 144/60 mm[Hg] (2) 146/80 mm[Hg] (3) 140/80 mm[Hg] 11/09/2012 Weight Blood Pressure 81.4 kg 140/70 mm[Hg] 09/14/2012 Weight Blood Pressure 80.9 kg 120/78 mm[Hg] 07/06/2012 Height Weight 161.93 cm 80.51 kg 06/30/2012 Height Weight Blood Pressure 161.93 cm 80.51 kg (1) 132/70 mm[Hg] (2) 124/68 mm[Hg] 05/06/2012 Height Weight Blood Pressure 161.93 cm 81.87 kg (1) 118/64 mm[Hg] (2) 124/50 mm[Hg] 02/03/2012 Height Weight Blood Pressure 162 cm 79.9 kg 124/72 mm[Hg] 01/29/2012 Height Weight 162 cm 80.9 kg 12/30/2011 Height Weight Blood Pressure 162 cm 80.9 kg 150/78 mm[Hg] 12/01/2011 Height Weight 161.93 cm 81.31 kg 11/30/2011 Height Weight Blood Pressure 161.93 cm 81.31 kg (1) 124/68 mm[Hg] (2) 142/70 mm[Hg] 10/30/2011 Height Weight 63.75 cm 80.9 kg 10/28/2011 Weight Blood Pressure 80.9 kg 128/72 mm[Hg] 10/14/2011 Height Weight Blood Pressure 162.6 cm 80.9 kg 144/83 mm[Hg] 07/27/2011 Height Weight Blood Pressure 161.93 cm 79.83 kg (1) 118/76 mm[Hg] (2) 124/74 mm[Hg] 06/23/2011 Height Weight Blood Pressure 161.93 cm 79.15 kg (1) 134/72 mm[Hg] (2) 132/72 mm[Hg] 05/04/2011 Height Weight Blood Pressure 161.93 cm (1) 78.34 kg (1) 118/58 mm[Hg] (2) 78.47 kg (2) 160/90 mm[Hg] (3) 108/50 mm[Hg] 12/23/2010 Height Weight Blood Pressure 161.93 cm 79.61 kg 120/60 mm[Hg] 11/04/2010 Height Weight Blood Pressure 161.93 cm 77.56 kg 130/86 mm[Hg] 10/08/2010 Height Weight Blood Pressure 161.93 cm 77.59 kg 130/70 mm[Hg] 07/17/2010 Weight Blood Pressure 77.11 kg 108/62 mm[Hg] 07/10/2010 Height Weight Blood Pressure 161.93 cm 76.09 kg (1) 116/56 mm[Hg] (2) 118/60 mm[Hg] 04/17/2010 Weight Blood Pressure 76.2 kg 140/68 mm[Hg] 04/08/2010 Height Weight Blood Pressure 161.93 cm 77.11 kg 150/68 mm[Hg] 02/18/2010 Weight Blood Pressure 78.93 kg (1) 132/80 mm[Hg] (2) 138/70 mm[Hg] 10/08/2009 Weight Blood Pressure 80.29 kg 150/67 mm[Hg] 08/23/2009 Weight Blood Pressure 80.06 kg (1) 134/74 mm[Hg] (2) 130/70 mm[Hg] (3) 144/72 mm[Hg] 07/16/2009 Weight Blood Pressure 78.93 kg 132/72 mm[Hg] 06/24/2009 Weight Blood Pressure 78.47 kg 146/72 mm[Hg] 06/03/2009 Weight Blood Pressure 78.93 kg 160/88 mm[Hg] 04/01/2009 Weight Blood Pressure 78.47 kg 162/67 mm[Hg] 02/07/2009 Weight Blood Pressure 79.38 kg (1) 108/60 mm[Hg] (2) 128/60 mm[Hg] 10/01/2008 Weight Blood Pressure 79.38 kg (1) 134/70 mm[Hg] (2) 142/68 mm[Hg] 03/29/2008 Weight Blood Pressure 78.02 kg (1) 118/54 mm[Hg] (2) 120/62 mm[Hg] 02/07/2008 Height Weight Blood Pressure 161.93 cm 77.56 kg 126/68 mm[Hg] 08/04/2007 Weight Blood Pressure 77.56 kg (1) 140/80 mm[Hg] (2) 146/80 mm[Hg] 04/11/2007 Weight Blood Pressure 78.02 kg (1) 138/70 mm[Hg] (2) 132/68 mm[Hg] 12/02/2006 Weight Blood Pressure 76.88 kg (1) 140/82 mm[Hg] (2) 134/80 mm[Hg] 07/27/2006 Weight Blood Pressure 74.9 kg 136/66 mm[Hg] 06/15/2006 Weight Blood Pressure 74.56 kg 140/78 mm[Hg] 05/07/2006 Weight Blood Pressure 74.84 kg (1) 156/60 mm[Hg] (2) 146/56 mm[Hg] (3) 140/78 mm[Hg] (4) 152/70 mm[Hg] 02/04/2006 Weight Blood Pressure 75.98 kg (1) 142/82 mm[Hg] (2) 142/60 mm[Hg] 01/26/2006 Weight Blood Pressure 74.9 kg 132/66 mm[Hg] 12/22/2005 Height Weight Blood Pressure 163.83 cm 75.41 kg (1) 154/70 mm[Hg] (2) 142/72 mm[Hg] 12/04/2005 Weight Blood Pressure 76.66 kg (1) 154/72 mm[Hg] (2) 132/78 mm[Hg] 09/21/2005 Weight Blood Pressure 78.98 kg (1) 180/80 mm[Hg] (2) 160/80 mm[Hg] 09/11/2005 Weight Blood Pressure 78.7 kg (1) 178/78 mm[Hg] (2) 168/82 mm[Hg] 06/22/2005 Weight Blood Pressure 76.88 kg 138/80 mm[Hg] 02/17/2005 Weight Blood Pressure 72.57 kg 134/72 mm[Hg] 11/11/2004 Weight Blood Pressure 72.8 kg (1) 142/80 mm[Hg] (2) 140/70 mm[Hg] 10/01/2004 Weight Blood Pressure 72.12 kg 144/76 mm[Hg] 09/10/2004 Height Weight Blood Pressure 162.56 cm 72.29 kg 154/70 mm[Hg] 06/24/2004 Height Weight Blood Pressure 163.19 cm 74.16 kg (1) 140/80 mm[Hg] (2) 152/80 mm[Hg]
--- OUTSIDE RECORDS SUMMARY | 2021-10-06 01:18 | XMS_ITS | CCD ---
:1945 Author Care Team Providers Name Role Phone SHANE LAWRENCE, CHANDRA Bhat Attending Physician Unavailable Vital Signs Unknown or Not Available. Allergies Allergy Code Allergy Type Reaction Status No Known Drug Allergies 0 No known drug allergies Active Procedures Unknown or Not Available. History of Immunizations Unknown or Not Available. Problems Unknown or Not Available. Results Unknown or Not Available. Active Medications Unknown or Not Available. Medications Administered During Visit Unknown or Not Available. Encounters Encounter Diagnosis Diagnosis Code Start Date Encounter for antineoplastic immunotherapy [id number] 11/19/2020 Social History Smoking Status Code Start Date End Date Never smoker [id number] Patient Decision Aids Unknown or Not Available. Discharge Instructions You were admitted to [facility] on 11/19/2020 15:35 with a principal diagnosis of Encounter for antineoplasti c immunotherapy You were discharged from [facility] on 11/19/2020 15:35 Should you have any questions prior to d ischarge, please contact a member of your healthcare team. If you have left the spital and have any questions, please contact your primary care physician. Chief Complaint and Reason For Visit Unknown or Not Available. Function Status Unknown or Not Available. Plan of Care Unknown or Not Available. Referral/Transition of Care Unknown or Not Available.
--- OUTSIDE RECORDS SUMMARY | 2021-10-06 01:18 | XMS_ITS | CCD ---
:1945 Author Care Team Providers Name Role Phone MARKEL WHITMORE MD Attending Physician Unavailable Vital Signs Unknown or [...] Encounters Encounter Diagnosis Diagnosis Code Start Date Malignant neoplasm of bladder, unspecified [id number] 12/31/2020 Social History Smoking Status Code Start Date End Date Never smoker [id number] Patient Decision Aids Unknown or Not Available. Discharge Instructions You were admitted to [facility] on 12/31/2020 19:00 with a principal diagnosis of Malignant neoplasm of bladd er, unspecified You were discharged from [facility] on 12/31/2020 19:00 Should you have any questions prior to d ischarge, please contact a member of your healthcare team. If you have left the ho spital and have any questions, please contact your primary care physician. Chief Complaint and Reason For Visit Unknown or Not Available. Function Status Unknown or Not Available. Plan of Care Unknown or Not Available. Referral/Transition of Care Unknown or Not Available.
[2021-10-06] MEDS: Normal Saline Flush 10 ML SYR IVP (09:03)
[2021-10-06 09:06] LABS: Abs Immature Grans 0.04 10^3/uL (0.0-0.06); Absolute Basophil Count 0.02 10^3/uL (0.0-0.2); Absolute Eosinophil Count 0.04 10^3/uL (0.0-0.7); Absolute Lymphocyte Count 1.47 10^3/uL (1.2-3.4); Absolute Monocyte Count 0.94 10^3/uL (0.1-0.8); Absolute Neutrophil Count 1.36 10^3/uL (1.2-6.7); Basophils % 0.5; HCT 27.9 % (36.0-46.0); HGB 9.4 g/dL (11.2-15.7); MCH 32.5 pg (27.0-33.0); MCHC 33.7 % (32.0-36.0); MCV 97 fL (80-95); MPV 8.5 fL (8.0-11.0); Monocytes % 24.3; Neutrophils % 35.2; Platelet Count 301 10^3/uL (130-400); RBC 2.89 10^6/uL (3.93-5.22); RDW 14.7 % (11.7-14.6); RDW-SD 51.8 fL; WBC 3.87 10^3/uL (4.4-10.8)
[2021-10-06 09:29] LABS: ALT 27 U/L (14-59); AST 22 U/L (15-37); Albumin 3.4 g/dL (3.4-5.0); Alkaline Phosphatase 117 U/L (46-116); Anion Gap 4.7 mmol/L (3-11); BUN 13 mg/dL (7-18); Bilirubin, Total 0.3 mg/dL (0.2-1.0); CO2 26.3 mmol/L (21.0-32.0); CREATININE 0.5 mg/dL (0.55-1.02); Calcium 8.4 mg/dL (8.5-10.1); Chloride 96 mmol/L (98-107); FREE T4 1.38 ng/dL (0.76-1.46); Glucose 123 mg/dL (74-106); LDH 214 U/L (81-234); Magnesium 1.5 mg/dL (1.8-2.4); Potassium 3.8 mmol/L (3.5-5.1); Sodium 127 mmol/L (136-145); TSH 0.63 uIU/mL (0.36-3.74); Total Protein 6.9 g/dL (6.4-8.2)
[2021-10-27] MEDS: Normal Saline Flush 10 ML SYR IVP (08:57)
[2021-10-27 09:06] LABS: Abs Immature Grans 0.04 10^3/uL (0.0-0.06); Absolute Basophil Count 0.03 10^3/uL (0.0-0.2); Absolute Eosinophil Count 0.03 10^3/uL (0.0-0.7); Absolute Lymphocyte Count 1.57 10^3/uL (1.2-3.4); Absolute Monocyte Count 1.04 10^3/uL (0.1-0.8); Absolute Neutrophil Count 1.16 10^3/uL (1.2-6.7); Basophils % 0.8; Eosinophils % 0.8; HCT 28.4 % (36.0-46.0); HGB 9.6 g/dL (11.2-15.7); Lymphocytes % 40.6; MCH 32.5 pg (27.0-33.0); MCHC 33.8 % (32.0-36.0); MCV 96 fL (80-95); MPV 8.4 fL (8.0-11.0); Monocytes % 26.9; Neutrophils % 29.9; Platelet Count 250 10^3/uL (130-400); RBC 2.95 10^6/uL (3.93-5.22); RDW 15.2 % (11.7-14.6); WBC 3.87 10^3/uL (4.4-10.8)
[2021-10-27 09:27] LABS: ALT 28 U/L (14-59); AST 25 U/L (15-37); Albumin 3.6 g/dL (3.4-5.0); Alkaline Phosphatase 128 U/L (46-116); Anion Gap 7.4 mmol/L (3-11); BUN 11 mg/dL (7-18); Bilirubin, Total 0.3 mg/dL (0.2-1.0); CO2 26.6 mmol/L (21.0-32.0); CREATININE 0.5 mg/dL (0.55-1.02); Calcium 8.8 mg/dL (8.5-10.1); Chloride 96 mmol/L (98-107); FREE T4 1.45 ng/dL (0.76-1.46); Glucose 98 mg/dL (74-106); LDH 223 U/L (81-234); Magnesium 1.6 mg/dL (1.8-2.4); Potassium 4.2 mmol/L (3.5-5.1); Sodium 130 mmol/L (136-145); TSH 0.33 uIU/mL (0.36-3.74); Total Protein 7.2 g/dL (6.4-8.2)
== END 2021-11-04 23:59 | disposition home or self-care (01) ==
LOC: INF 02:33
PROVIDERS: PCP Internal Medicine; Visit Provider Internal Medicine Medical Oncology
DX: C34.12 Malignant neoplasm of upper lobe, left bronchus or lung (principal); Z79.899 Other long term (current) drug therapy; Z45.2 Encounter for adjustment and management of vascular access device
CPT/HCPCS: 36591; 80053; 83615; 83735; 84439; 84443; 85025

== ENCOUNTER 2021-11-17 03:06 | Outpatient (RCR) | payer MEDICARE, OTHER, SELFPAY ==
[2021-11-17] MEDS: Normal Saline Flush 10 ML SYR IVP (10:25)
[2021-11-17 10:46] LABS: Abs Immature Grans 0.01 10^3/uL (0.0-0.06); Absolute Basophil Count 0.02 10^3/uL (0.0-0.2); Absolute Monocyte Count 0.83 10^3/uL (0.1-0.8); Absolute Neutrophil Count 2.61 10^3/uL (1.2-6.7); Basophils % 0.4; Eosinophils % 3.8; HCT 30.1 % (36.0-46.0); HGB 10.2 g/dL (11.2-15.7); Immature Grans % 0.2; Lymphocytes % 30.4; MCH 31.9 pg (27.0-33.0); MCHC 33.9 % (32.0-36.0); MCV 94 fL (80-95); MPV 9.2 fL (8.0-11.0); Monocytes % 15.7; Neutrophils % 49.5; Platelet Count 213 10^3/uL (130-400); RDW-SD 47.7 fL; WBC 5.27 10^3/uL (4.4-10.8)
[2021-11-17 11:23] LABS: ALT 23 U/L (14-59); AST 22 U/L (15-37); Albumin 3.6 g/dL (3.4-5.0); Alkaline Phosphatase 118 U/L (46-116); Anion Gap 7.3 mmol/L (3-11); BUN 12 mg/dL (7-18); Bilirubin, Total 0.3 mg/dL (0.2-1.0); CO2 26.7 mmol/L (21.0-32.0); CREATININE 0.5 mg/dL (0.55-1.02); Calcium 8.8 mg/dL (8.5-10.1); Chloride 94 mmol/L (98-107); FREE T4 1.24 ng/dL (0.76-1.46); Ferritin 191 ng/mL (8-252); Glucose 85 mg/dL (74-106); LDH 191 U/L (81-234); Magnesium 1.6 mg/dL (1.8-2.4); Potassium 4.2 mmol/L (3.5-5.1); Sodium 128 mmol/L (136-145); TSH 0.77 uIU/mL (0.36-3.74); Total Protein 7.1 g/dL (6.4-8.2)
[2021-11-17 14:36] LABS: Folate 19.6 ng/mL (8.6-20.0); Vitamin B12 347 pg/mL (193-986)
[2021-11-17 14:38] LABS: Iron 66 ug/dL (50-170); Total Iron Binding Capacity 311 ug/dL (250-450); Transferrin Sat 21 % (15-50)
== END 2021-12-04 23:59 | disposition home or self-care (01) ==
LOC: INF 03:06
PROVIDERS: PCP Internal Medicine; Visit Provider Internal Medicine Medical Oncology
DX: C34.12 Malignant neoplasm of upper lobe, left bronchus or lung (principal); Z79.899 Other long term (current) drug therapy; Z45.2 Encounter for adjustment and management of vascular access device
CPT/HCPCS: 36591; 80053; 82607; 82728; 82746; 83540; 83550; 83615; 83735; 84439; 84443; 85025

== ENCOUNTER 2021-12-15 02:45 | Outpatient (RCR) | payer MEDICARE, OTHER, SELFPAY ==
[2021-12-15] MEDS: Normal Saline Flush 10 ML SYR IVP (08:25)
[2021-12-15 08:46] LABS: Abs Immature Grans 0.02 10^3/uL (0.0-0.06); Absolute Basophil Count 0.01 10^3/uL (0.0-0.2); Absolute Eosinophil Count 0.13 10^3/uL (0.0-0.7); Absolute Lymphocyte Count 1.38 10^3/uL (1.2-3.4); Absolute Monocyte Count 0.67 10^3/uL (0.1-0.8); Absolute Neutrophil Count 2.52 10^3/uL (1.2-6.7); Basophils % 0.2; Eosinophils % 2.7; HCT 32.5 % (36.0-46.0); HGB 11.1 g/dL (11.2-15.7); Immature Grans % 0.4; Lymphocytes % 29.2; MCH 31.5 pg (27.0-33.0); MCHC 34.2 % (32.0-36.0); MCV 92 fL (80-95); MPV 8.9 fL (8.0-11.0); Monocytes % 14.2; Neutrophils % 53.3; Platelet Count 199 10^3/uL (130-400); RBC 3.52 10^6/uL (3.93-5.22); RDW 12.7 % (11.7-14.6); RDW-SD 42.5 fL; WBC 4.73 10^3/uL (4.4-10.8)
[2021-12-15 09:11] LABS: ALT 22 U/L (14-59); AST 20 U/L (15-37); Albumin 3.7 g/dL (3.4-5.0); Alkaline Phosphatase 100 U/L (46-116); Anion Gap 6.1 mmol/L (3-11); BUN 17 mg/dL (7-18); Bilirubin, Total 0.3 mg/dL (0.2-1.0); CO2 27.9 mmol/L (21.0-32.0); CREATININE 0.6 mg/dL (0.55-1.02); Chloride 92 mmol/L (98-107); FREE T4 1.16 ng/dL (0.76-1.46); Glucose 100 mg/dL (74-106); Magnesium 1.5 mg/dL (1.8-2.4); Potassium 4.3 mmol/L (3.5-5.1); Sodium 126 mmol/L (136-145); TSH 2.37 uIU/mL (0.36-3.74); Total Protein 7.2 g/dL (6.4-8.2)
== END 2022-01-04 23:59 | disposition home or self-care (01) ==
LOC: INF 02:45
PROVIDERS: PCP Internal Medicine; Visit Provider Internal Medicine Medical Oncology
DX: C34.12 Malignant neoplasm of upper lobe, left bronchus or lung (principal); Z79.899 Other long term (current) drug therapy; Z45.2 Encounter for adjustment and management of vascular access device
CPT/HCPCS: 36591; 80053; 83735; 84439; 84443; 85025

== ENCOUNTER 2022-02-03 02:46 | Outpatient (RCR) | payer MEDICARE, OTHER, SELFPAY ==
[2022-01-19] MEDS: Normal Saline Flush 10 ML SYR IVP (12:52)
[2022-01-19 13:05] LABS: Abs Immature Grans 0.02 10^3/uL (0.0-0.06); Absolute Basophil Count 0.02 10^3/uL (0.0-0.2); Absolute Eosinophil Count 0.17 10^3/uL (0.0-0.7); Absolute Lymphocyte Count 1.52 10^3/uL (1.2-3.4); Absolute Monocyte Count 0.73 10^3/uL (0.1-0.8); Absolute Neutrophil Count 2.47 10^3/uL (1.2-6.7); Basophils % 0.4; Eosinophils % 3.4; HCT 30.5 % (36.0-46.0); HGB 10.6 g/dL (11.2-15.7); Immature Grans % 0.4; Lymphocytes % 30.8; MCHC 34.8 % (32.0-36.0); MCV 92 fL (80-95); MPV 8.6 fL (8.0-11.0); Monocytes % 14.8; Neutrophils % 50.2; Platelet Count 206 10^3/uL (130-400); RBC 3.31 10^6/uL (3.93-5.22); RDW 12.7 % (11.7-14.6); RDW-SD 42.7 fL; WBC 4.93 10^3/uL (4.4-10.8)
[2022-01-19 13:28] LABS: ALT 27 U/L (14-59); AST 21 U/L (15-37); Albumin 3.6 g/dL (3.4-5.0); Alkaline Phosphatase 87 U/L (46-116); Anion Gap 5.9 mmol/L (3-11); BUN 21 mg/dL (7-18); Bilirubin, Total 0.3 mg/dL (0.2-1.0); CO2 31.1 mmol/L (21.0-32.0); CREATININE 0.6 mg/dL (0.55-1.02); Calcium 8.8 mg/dL (8.5-10.1); Chloride 96 mmol/L (98-107); FREE T4 1.22 ng/dL (0.76-1.46); Glucose 121 mg/dL (74-106); Magnesium 1.7 mg/dL (1.8-2.4); Potassium 3.8 mmol/L (3.5-5.1); Sodium 133 mmol/L (136-145); TSH 0.46 uIU/mL (0.36-3.74); Total Protein 7.2 g/dL (6.4-8.2)
== END 2022-02-04 23:59 | disposition home or self-care (01) ==
LOC: INF 02:46
PROVIDERS: PCP Internal Medicine; Visit Provider Internal Medicine Medical Oncology
DX: C34.12 Malignant neoplasm of upper lobe, left bronchus or lung (principal); Z79.899 Other long term (current) drug therapy; Z45.2 Encounter for adjustment and management of vascular access device
CPT/HCPCS: 36591; 80053; 83735; 84439; 84443; 85025

== ENCOUNTER 2022-02-23 03:10 | Outpatient (RCR) | payer MEDICARE, SELFPAY ==
[2022-02-23] MEDS: Normal Saline Flush 10 ML SYR IVP (12:03)
[2022-02-23 12:18] LABS: Abs Immature Grans 0.03 10^3/uL (0.0-0.06); Absolute Basophil Count 0.02 10^3/uL (0.0-0.2); Absolute Eosinophil Count 0.16 10^3/uL (0.0-0.7); Absolute Monocyte Count 0.86 10^3/uL (0.1-0.8); Absolute Neutrophil Count 3.06 10^3/uL (1.2-6.7); Basophils % 0.3; Eosinophils % 2.8; HCT 31.4 % (36.0-46.0); HGB 11.2 g/dL (11.2-15.7); Immature Grans % 0.5; Lymphocytes % 27.9; MCH 31.2 pg (27.0-33.0); MCHC 35.7 % (32.0-36.0); MCV 88 fL (80-95); MPV 8.9 fL (8.0-11.0); Neutrophils % 53.5; Platelet Count 238 10^3/uL (130-400); RBC 3.59 10^6/uL (3.93-5.22); RDW 12.2 % (11.7-14.6); RDW-SD 39.6 fL; WBC 5.73 10^3/uL (4.4-10.8)
[2022-02-23 12:51] LABS: ALT 27 U/L (14-59); AST 21 U/L (15-37); Albumin 3.8 g/dL (3.4-5.0); Alkaline Phosphatase 92 U/L (46-116); Anion Gap 7.5 mmol/L (3-11); BUN 16 mg/dL (7-18); Bilirubin, Total 0.4 mg/dL (0.2-1.0); CO2 27.5 mmol/L (21.0-32.0); CREATININE 0.7 mg/dL (0.55-1.02); Calcium 8.9 mg/dL (8.5-10.1); Chloride 88 mmol/L (98-107); FREE T4 1.46 ng/dL (0.76-1.46); Glucose 97 mg/dL (74-106); Magnesium 1.7 mg/dL (1.8-2.4); Potassium 4.3 mmol/L (3.5-5.1); TSH 0.93 uIU/mL (0.36-3.74); Total Protein 7.5 g/dL (6.4-8.2)
[2022-02-23 13:02] LABS: Sodium 123 mmol/L (136-145)
== END 2022-03-06 23:59 | disposition home or self-care (01) ==
LOC: INF 03:10
PROVIDERS: PCP Internal Medicine; Visit Provider Internal Medicine Medical Oncology
DX: C34.12 Malignant neoplasm of upper lobe, left bronchus or lung (principal); Z79.899 Other long term (current) drug therapy; Z45.2 Encounter for adjustment and management of vascular access device
CPT/HCPCS: 36591; 80053; 83735; 84439; 84443; 85025

== ENCOUNTER 2022-04-06 02:39 | Outpatient (RCR) | payer MEDICARE, SELFPAY ==
[2022-03-16] MEDS: Normal Saline Flush 10 ML SYR IVP (12:02)
[2022-03-16 12:07] LABS: Abs Immature Grans 0.05 10^3/uL (0.0-0.06); Absolute Basophil Count 0.05 10^3/uL (0.0-0.2); Absolute Lymphocyte Count 1.45 10^3/uL (1.2-3.4); Absolute Monocyte Count 1.06 10^3/uL (0.1-0.8); Absolute Neutrophil Count 2.91 10^3/uL (1.2-6.7); Basophils % 0.9; Eosinophils % 1.8; HCT 30.3 % (36.0-46.0); HGB 10.4 g/dL (11.2-15.7); Immature Grans % 0.9; Lymphocytes % 25.8; MCHC 34.3 % (32.0-36.0); MCV 93 fL (80-95); MPV 8.8 fL (8.0-11.0); Monocytes % 18.9; Neutrophils % 51.7; Platelet Count 401 10^3/uL (130-400); RBC 3.25 10^6/uL (3.93-5.22); RDW 13.1 % (11.7-14.6); RDW-SD 44.9 fL; WBC 5.62 10^3/uL (4.4-10.8)
[2022-03-16 12:32] LABS: ALT 18 U/L (14-59); AST 13 U/L (15-37); Albumin 3.6 g/dL (3.4-5.0); Alkaline Phosphatase 88 U/L (46-116); Anion Gap 5.7 mmol/L (3-11); BUN 17 mg/dL (7-18); Bilirubin, Total 0.3 mg/dL (0.2-1.0); CO2 28.3 mmol/L (21.0-32.0); CREATININE 0.8 mg/dL (0.55-1.02); Calcium 8.9 mg/dL (8.5-10.1); Chloride 101 mmol/L (98-107); Estimated GFR 77.27 (mL/min/1.73m2); FREE T4 1.26 ng/dL (0.76-1.46); Glucose 141 mg/dL (74-106); Magnesium 1.6 mg/dL (1.8-2.4); Potassium 3.7 mmol/L (3.5-5.1); Sodium 135 mmol/L (136-145); TSH 1.24 uIU/mL (0.36-3.74); Total Protein 7.1 g/dL (6.4-8.2)
[2022-04-06] MEDS: Normal Saline Flush 10 ML SYR IVP (11:54)
[2022-04-06 12:30] LABS: Abs Immature Grans 0.02 10^3/uL (0.0-0.06); Absolute Basophil Count 0.03 10^3/uL (0.0-0.2); Absolute Eosinophil Count 0.14 10^3/uL (0.0-0.7); Absolute Monocyte Count 0.95 10^3/uL (0.1-0.8); Absolute Neutrophil Count 2.74 10^3/uL (1.2-6.7); Basophils % 0.6; Eosinophils % 2.7; HGB 10.3 g/dL (11.2-15.7); Immature Grans % 0.4; Lymphocytes % 26.5; MCH 31.2 pg (27.0-33.0); MCHC 33.2 % (32.0-36.0); MCV 94 fL (80-95); MPV 9.3 fL (8.0-11.0); Neutrophils % 51.8; Platelet Count 321 10^3/uL (130-400); RDW 13.5 % (11.7-14.6); RDW-SD 46.4 fL; WBC 5.28 10^3/uL (4.4-10.8)
[2022-04-06 12:53] LABS: ALT 17 U/L (14-59); AST 17 U/L (15-37); Albumin 3.7 g/dL (3.4-5.0); Alkaline Phosphatase 82 U/L (46-116); Anion Gap 6.6 mmol/L (3-11); BUN 15 mg/dL (7-18); Bilirubin, Total 0.4 mg/dL (0.2-1.0); CO2 27.4 mmol/L (21.0-32.0); CREATININE 0.7 mg/dL (0.55-1.02); Calcium 8.8 mg/dL (8.5-10.1); Chloride 101 mmol/L (98-107); FREE T4 1.41 ng/dL (0.76-1.46); Glucose 96 mg/dL (74-106); Magnesium 1.7 mg/dL (1.8-2.4); Potassium 3.7 mmol/L (3.5-5.1); Sodium 135 mmol/L (136-145); TSH 0.76 uIU/mL (0.36-3.74); Total Protein 7.3 g/dL (6.4-8.2)
== END 2022-04-06 23:59 | disposition home or self-care (01) ==
LOC: INF 02:39
PROVIDERS: PCP Internal Medicine; Visit Provider Internal Medicine Medical Oncology
DX: C34.12 Malignant neoplasm of upper lobe, left bronchus or lung (principal); Z79.899 Other long term (current) drug therapy; Z45.2 Encounter for adjustment and management of vascular access device
CPT/HCPCS: 36591; 80053; 83735; 84439; 84443; 85025

== ENCOUNTER 2022-04-27 02:20 | Outpatient (RCR) | payer MEDICARE, SELFPAY ==
[2022-04-27] MEDS: Normal Saline Flush 10 ML SYR IVP (08:56)
[2022-04-27 09:08] LABS: Abs Immature Grans 0.02 10^3/uL (0.0-0.06); Absolute Basophil Count 0.05 10^3/uL (0.0-0.2); Absolute Lymphocyte Count 1.35 10^3/uL (1.2-3.4); Absolute Monocyte Count 1.15 10^3/uL (0.1-0.8); Absolute Neutrophil Count 3.37 10^3/uL (1.2-6.7); Basophils % 0.8; Eosinophils % 1.7; HCT 32.1 % (36.0-46.0); HGB 10.8 g/dL (11.2-15.7); Immature Grans % 0.3; Lymphocytes % 22.4; MCH 31.1 pg (27.0-33.0); MCHC 33.6 % (32.0-36.0); MCV 93 fL (80-95); Neutrophils % 55.8; Platelet Count 327 10^3/uL (130-400); RBC 3.47 10^6/uL (3.93-5.22); RDW 13.5 % (11.7-14.6); RDW-SD 45.5 fL; WBC 6.04 10^3/uL (4.4-10.8)
[2022-04-27 09:36] LABS: ALT 17 U/L (14-59); AST 15 U/L (15-37); Albumin 3.8 g/dL (3.4-5.0); Alkaline Phosphatase 84 U/L (46-116); Anion Gap 6.4 mmol/L (3-11); BUN 15 mg/dL (7-18); Bilirubin, Total 0.4 mg/dL (0.2-1.0); CO2 28.6 mmol/L (21.0-32.0); CREATININE 0.7 mg/dL (0.55-1.02); Calcium 9.3 mg/dL (8.5-10.1); Chloride 99 mmol/L (98-107); Estimated GFR 90.14 (mL/min/1.73m2); FREE T4 1.28 ng/dL (0.76-1.46); Glucose 105 mg/dL (74-106); Magnesium 1.6 mg/dL (1.8-2.4); Potassium 4.1 mmol/L (3.5-5.1); Sodium 134 mmol/L (136-145); Total Protein 7.5 g/dL (6.4-8.2)
== END 2022-05-06 23:59 | disposition home or self-care (01) ==
LOC: INF 02:20
PROVIDERS: PCP Internal Medicine; Visit Provider Internal Medicine Medical Oncology
DX: C34.12 Malignant neoplasm of upper lobe, left bronchus or lung (principal); Z79.899 Other long term (current) drug therapy; Z45.2 Encounter for adjustment and management of vascular access device
CPT/HCPCS: 36591; 80053; 83735; 84439; 84443; 85025

== ENCOUNTER 2022-05-18 03:00 | Outpatient (RCR) | payer MEDICARE, SELFPAY ==
[2022-05-18] MEDS: Normal Saline Flush 10 ML SYR IVP (12:07)
[2022-05-18 12:15] LABS: Abs Immature Grans 0.02 10^3/uL (0.0-0.06); Absolute Basophil Count 0.04 10^3/uL (0.0-0.2); Absolute Eosinophil Count 0.14 10^3/uL (0.0-0.7); Absolute Lymphocyte Count 1.39 10^3/uL (1.2-3.4); Absolute Monocyte Count 1.18 10^3/uL (0.1-0.8); Absolute Neutrophil Count 2.64 10^3/uL (1.2-6.7); Basophils % 0.7; Eosinophils % 2.6; HCT 31.5 % (36.0-46.0); HGB 10.5 g/dL (11.2-15.7); Immature Grans % 0.4; Lymphocytes % 25.7; MCH 30.8 pg (27.0-33.0); MCHC 33.3 % (32.0-36.0); MCV 92 fL (80-95); MPV 9.2 fL (8.0-11.0); Monocytes % 21.8; Neutrophils % 48.8; Platelet Count 347 10^3/uL (130-400); RBC 3.41 10^6/uL (3.93-5.22); RDW 13.3 % (11.7-14.6); RDW-SD 45.1 fL; WBC 5.41 10^3/uL (4.4-10.8)
[2022-05-18 12:43] LABS: ALT 18 U/L (14-59); AST 19 U/L (15-37); Albumin 3.6 g/dL (3.4-5.0); Alkaline Phosphatase 97 U/L (46-116); Anion Gap 7.4 mmol/L (3-11); BUN 13 mg/dL (7-18); Bilirubin, Total 0.3 mg/dL (0.2-1.0); CO2 28.6 mmol/L (21.0-32.0); CREATININE 0.8 mg/dL (0.55-1.02); Calcium 9.1 mg/dL (8.5-10.1); Chloride 99 mmol/L (98-107); Estimated GFR 76.79 (mL/min/1.73m2); FREE T4 1.51 ng/dL (0.76-1.46); Glucose 103 mg/dL (74-106); Magnesium 1.8 mg/dL (1.8-2.4); Sodium 135 mmol/L (136-145); TSH 0.27 uIU/mL (0.36-3.74); Total Protein 7.5 g/dL (6.4-8.2)
== END 2022-06-06 23:59 | disposition home or self-care (01) ==
LOC: INF 03:00
PROVIDERS: PCP Internal Medicine; Visit Provider Internal Medicine Medical Oncology
DX: C34.12 Malignant neoplasm of upper lobe, left bronchus or lung (principal); Z79.899 Other long term (current) drug therapy; Z45.2 Encounter for adjustment and management of vascular access device
CPT/HCPCS: 36591; 80053; 83735; 84439; 84443; 85025

== ENCOUNTER 2022-06-29 02:09 | Outpatient (RCR) | payer MEDICARE, SELFPAY ==
[2022-06-10] MEDS: Normal Saline Flush 10 ML SYR IVP (11:59)
[2022-06-10 12:25] LABS: Abs Immature Grans 0.02 10^3/uL (0.0-0.06); Absolute Basophil Count 0.06 10^3/uL (0.0-0.2); Absolute Eosinophil Count 0.15 10^3/uL (0.0-0.7); Absolute Lymphocyte Count 1.28 10^3/uL (1.2-3.4); Absolute Monocyte Count 0.84 10^3/uL (0.1-0.8); Absolute Neutrophil Count 2.76 10^3/uL (1.2-6.7); Basophils % 1.2; Eosinophils % 2.9; HCT 30.7 % (36.0-46.0); HGB 10.3 g/dL (11.2-15.7); Immature Grans % 0.4; MCHC 33.6 % (32.0-36.0); MCV 93 fL (80-95); MPV 9.4 fL (8.0-11.0); Monocytes % 16.4; Neutrophils % 54.1; Platelet Count 367 10^3/uL (130-400); RBC 3.32 10^6/uL (3.93-5.22); RDW 13.7 % (11.7-14.6); RDW-SD 46.6 fL; WBC 5.11 10^3/uL (4.4-10.8)
[2022-06-10 12:43] LABS: ALT 21 U/L (14-59); AST 19 U/L (15-37); Albumin 3.6 g/dL (3.4-5.0); Alkaline Phosphatase 101 U/L (46-116); Anion Gap 5.5 mmol/L (3-11); BUN 12 mg/dL (7-18); Bilirubin, Total 0.2 mg/dL (0.2-1.0); CO2 27.5 mmol/L (21.0-32.0); CREATININE 0.7 mg/dL (0.55-1.02); Calcium 8.8 mg/dL (8.5-10.1); Chloride 105 mmol/L (98-107); Estimated GFR 90.14 (mL/min/1.73m2); FREE T4 1.45 ng/dL (0.76-1.46); Glucose 98 mg/dL (74-106); Potassium 4.3 mmol/L (3.5-5.1); Sodium 138 mmol/L (136-145); TSH 0.27 uIU/mL (0.36-3.74); Total Protein 7.5 g/dL (6.4-8.2)
[2022-06-29] MEDS: Normal Saline Flush 10 ML SYR IVP (12:50)
[2022-06-29 13:03] LABS: Abs Immature Grans 0.02 10^3/uL (0.0-0.06); Absolute Basophil Count 0.03 10^3/uL (0.0-0.2); Absolute Eosinophil Count 0.21 10^3/uL (0.0-0.7); Absolute Lymphocyte Count 1.12 10^3/uL (1.2-3.4); Absolute Monocyte Count 1.11 10^3/uL (0.1-0.8); Absolute Neutrophil Count 1.31 10^3/uL (1.2-6.7); Basophils % 0.8; Eosinophils % 5.5; HCT 29.2 % (36.0-46.0); HGB 9.9 g/dL (11.2-15.7); Immature Grans % 0.5; Lymphocytes % 29.5; MCH 30.8 pg (27.0-33.0); MCHC 33.9 % (32.0-36.0); MCV 91 fL (80-95); MPV 9.3 fL (8.0-11.0); Monocytes % 29.2; Neutrophils % 34.5; Platelet Count 330 10^3/uL (130-400); RBC 3.21 10^6/uL (3.93-5.22); RDW-SD 46.6 fL
[2022-06-29 13:31] LABS: ALT 20 U/L (14-59); AST 19 U/L (15-37); Albumin 3.5 g/dL (3.4-5.0); Alkaline Phosphatase 94 U/L (46-116); Anion Gap 8.6 mmol/L (3-11); BUN 13 mg/dL (7-18); Bilirubin, Total 0.3 mg/dL (0.2-1.0); CO2 28.4 mmol/L (21.0-32.0); CREATININE 0.7 mg/dL (0.55-1.02); Calcium 9.4 mg/dL (8.5-10.1); Chloride 102 mmol/L (98-107); Estimated GFR 90.14 (mL/min/1.73m2); FREE T4 1.42 ng/dL (0.76-1.46); Glucose 125 mg/dL (74-106); Magnesium 1.6 mg/dL (1.8-2.4); Potassium 4.1 mmol/L (3.5-5.1); Sodium 139 mmol/L (136-145); TSH 0.14 uIU/mL (0.36-3.74); Total Protein 7.1 g/dL (6.4-8.2)
== END 2022-07-07 23:59 | disposition home or self-care (01) ==
LOC: INF 02:09
PROVIDERS: PCP Internal Medicine; Visit Provider Internal Medicine Medical Oncology
DX: C34.12 Malignant neoplasm of upper lobe, left bronchus or lung (principal); Z79.899 Other long term (current) drug therapy; Z45.2 Encounter for adjustment and management of vascular access device
CPT/HCPCS: 36591; 80053; 83735; 84439; 84443; 85025

== ENCOUNTER 2022-07-20 00:43 | Outpatient (RCR) | payer MEDICARE, SELFPAY ==
[2022-07-20] MEDS: Normal Saline Flush 10 ML SYR IVP (11:45)
[2022-07-20 11:51] LABS: Abs Immature Grans 0.02 10^3/uL (0.0-0.06); Absolute Basophil Count 0.03 10^3/uL (0.0-0.2); Absolute Eosinophil Count 0.25 10^3/uL (0.0-0.7); Absolute Lymphocyte Count 1.22 10^3/uL (1.2-3.4); Absolute Monocyte Count 0.97 10^3/uL (0.1-0.8); Absolute Neutrophil Count 2.12 10^3/uL (1.2-6.7); Basophils % 0.7; Eosinophils % 5.4; HCT 29.9 % (36.0-46.0); Immature Grans % 0.4; Lymphocytes % 26.5; MCH 30.8 pg (27.0-33.0); MCHC 33.4 % (32.0-36.0); MCV 92 fL (80-95); MPV 9.4 fL (8.0-11.0); Platelet Count 262 10^3/uL (130-400); RBC 3.25 10^6/uL (3.93-5.22); RDW 14.4 % (11.7-14.6); RDW-SD 48.8 fL; WBC 4.61 10^3/uL (4.4-10.8)
[2022-07-20 12:18] LABS: ALT 18 U/L (14-59); AST 16 U/L (15-37); Albumin 3.5 g/dL (3.4-5.0); Alkaline Phosphatase 102 U/L (46-116); Anion Gap 7.3 mmol/L (3-11); BUN 13 mg/dL (7-18); Bilirubin, Total 0.3 mg/dL (0.2-1.0); CO2 27.7 mmol/L (21.0-32.0); CREATININE 0.7 mg/dL (0.55-1.02); Calcium 9.2 mg/dL (8.5-10.1); Chloride 101 mmol/L (98-107); Estimated GFR 90.14 (mL/min/1.73m2); FREE T4 1.27 ng/dL (0.76-1.46); Glucose 112 mg/dL (74-106); Magnesium 1.8 mg/dL (1.8-2.4); Potassium 4.1 mmol/L (3.5-5.1); Sodium 136 mmol/L (136-145); TSH 0.21 uIU/mL (0.36-3.74); Total Protein 6.9 g/dL (6.4-8.2)
== END 2022-08-04 23:59 | disposition home or self-care (01) ==
LOC: INF 00:43
PROVIDERS: PCP Internal Medicine; Visit Provider Internal Medicine Medical Oncology
DX: C34.12 Malignant neoplasm of upper lobe, left bronchus or lung (principal); Z79.899 Other long term (current) drug therapy; Z45.2 Encounter for adjustment and management of vascular access device
CPT/HCPCS: 36591; 80053; 83735; 84439; 84443; 85025

== ENCOUNTER 2022-08-31 02:09 | Outpatient (RCR) | payer MEDICARE, SELFPAY ==
[2022-08-10] MEDS: Normal Saline Flush 10 ML SYR IVP (12:21)
[2022-08-10 12:30] LABS: Abs Immature Grans 0.03 10^3/uL (0.0-0.06); Absolute Basophil Count 0.03 10^3/uL (0.0-0.2); Absolute Eosinophil Count 0.24 10^3/uL (0.0-0.7); Absolute Lymphocyte Count 1.21 10^3/uL (1.2-3.4); Absolute Monocyte Count 0.87 10^3/uL (0.1-0.8); Absolute Neutrophil Count 2.21 10^3/uL (1.2-6.7); Basophils % 0.7; Eosinophils % 5.2; HCT 29.8 % (36.0-46.0); Immature Grans % 0.7; Lymphocytes % 26.4; MCH 31.3 pg (27.0-33.0); MCHC 33.6 % (32.0-36.0); MCV 93 fL (80-95); MPV 9.2 fL (8.0-11.0); Platelet Count 271 10^3/uL (130-400); RDW 14.2 % (11.7-14.6); RDW-SD 48.3 fL; WBC 4.59 10^3/uL (4.4-10.8)
[2022-08-10 13:03] LABS: ALT 17 U/L (14-59); AST 14 U/L (15-37); Albumin 3.5 g/dL (3.4-5.0); Alkaline Phosphatase 98 U/L (46-116); Anion Gap 9.5 mmol/L (3-11); BUN 13 mg/dL (7-18); Bilirubin, Total 0.2 mg/dL (0.2-1.0); CO2 26.5 mmol/L (21.0-32.0); CREATININE 0.7 mg/dL (0.55-1.02); Calcium 8.9 mg/dL (8.5-10.1); Chloride 103 mmol/L (98-107); Estimated GFR 90.14 (mL/min/1.73m2); Glucose 111 mg/dL (74-106); Magnesium 1.8 mg/dL (1.8-2.4); Potassium 3.9 mmol/L (3.5-5.1); Sodium 139 mmol/L (136-145); TSH (W/Ref FT4) 0.35 uIU/mL (0.36-3.74)
[2022-08-31] MEDS: Normal Saline Flush 10 ML SYR IVP (12:01)
[2022-08-31 12:23] LABS: Abs Immature Grans 0.02 10^3/uL (0.0-0.06); Absolute Basophil Count 0.02 10^3/uL (0.0-0.2); Absolute Eosinophil Count 0.08 10^3/uL (0.0-0.7); Absolute Lymphocyte Count 1.26 10^3/uL (1.2-3.4); Absolute Monocyte Count 1.01 10^3/uL (0.1-0.8); Absolute Neutrophil Count 1.89 10^3/uL (1.2-6.7); Basophils % 0.5; Eosinophils % 1.9; HCT 30.6 % (36.0-46.0); HGB 10.3 g/dL (11.2-15.7); Immature Grans % 0.5; Lymphocytes % 29.4; MCH 30.7 pg (27.0-33.0); MCHC 33.7 % (32.0-36.0); MCV 91 fL (80-95); MPV 9.5 fL (8.0-11.0); Monocytes % 23.6; Neutrophils % 44.1; Platelet Count 318 10^3/uL (130-400); RBC 3.36 10^6/uL (3.93-5.22); RDW 13.8 % (11.7-14.6); RDW-SD 46.5 fL; WBC 4.28 10^3/uL (4.4-10.8)
[2022-08-31 12:58] LABS: ALT 20 U/L (14-59); AST 16 U/L (15-37); Albumin 3.7 g/dL (3.4-5.0); Alkaline Phosphatase 93 U/L (46-116); Anion Gap 7.4 mmol/L (3-11); BUN 16 mg/dL (7-18); Bilirubin, Total 0.2 mg/dL (0.2-1.0); CO2 27.6 mmol/L (21.0-32.0); CREATININE 0.8 mg/dL (0.55-1.02); Calcium 9.2 mg/dL (8.5-10.1); Chloride 103 mmol/L (98-107); Estimated GFR 76.79 (mL/min/1.73m2); FREE T4 1.25 ng/dL (0.76-1.46); Glucose 107 mg/dL (74-106); Magnesium 1.9 mg/dL (1.8-2.4); Potassium 4.1 mmol/L (3.5-5.1); Sodium 138 mmol/L (136-145); TSH 0.49 uIU/mL (0.36-3.74); Total Protein 7.3 g/dL (6.4-8.2)
== END 2022-09-04 23:59 | disposition home or self-care (01) ==
LOC: INF 02:09
PROVIDERS: Nurse Practitioner Family; PCP Internal Medicine; Visit Provider Internal Medicine Medical Oncology
DX: C34.92 Malignant neoplasm of unspecified part of left bronchus or lung (principal); Z79.899 Other long term (current) drug therapy; Z45.2 Encounter for adjustment and management of vascular access device
CPT/HCPCS: 36591; 80053; 83735; 84439; 84443; 85025

== ENCOUNTER 2022-09-21 01:40 | Outpatient (RCR) | payer MEDICARE, SELFPAY ==
[2022-09-21] MEDS: Normal Saline Flush 10 ML SYR IVP (10:32)
[2022-09-21 10:42] LABS: Abs Immature Grans 0.01 10^3/uL (0.0-0.06); Absolute Basophil Count 0.02 10^3/uL (0.0-0.2); Absolute Eosinophil Count 0.19 10^3/uL (0.0-0.7); Absolute Lymphocyte Count 0.97 10^3/uL (1.2-3.4); Absolute Monocyte Count 0.86 10^3/uL (0.1-0.8); Absolute Neutrophil Count 2.39 10^3/uL (1.2-6.7); Basophils % 0.5; Eosinophils % 4.3; HCT 29.3 % (36.0-46.0); HGB 9.9 g/dL (11.2-15.7); Immature Grans % 0.2; Lymphocytes % 21.8; MCH 31.4 pg (27.0-33.0); MCHC 33.8 % (32.0-36.0); MCV 93 fL (80-95); MPV 9.1 fL (8.0-11.0); Monocytes % 19.4; Neutrophils % 53.8; Platelet Count 285 10^3/uL (130-400); RBC 3.15 10^6/uL (3.93-5.22); RDW 14.4 % (11.7-14.6); RDW-SD 48.7 fL; WBC 4.44 10^3/uL (4.4-10.8)
[2022-09-21 11:16] LABS: ALT 19 U/L (14-59); AST 14 U/L (15-37); Albumin 3.4 g/dL (3.4-5.0); Alkaline Phosphatase 86 U/L (46-116); Anion Gap 6.9 mmol/L (3-11); BUN 10 mg/dL (7-18); Bilirubin, Total 0.2 mg/dL (0.2-1.0); CO2 26.1 mmol/L (21.0-32.0); CREATININE 0.7 mg/dL (0.55-1.02); Calcium 8.8 mg/dL (8.5-10.1); Chloride 106 mmol/L (98-107); Estimated GFR 90.14 (mL/min/1.73m2); FREE T4 1.23 ng/dL (0.76-1.46); Glucose 130 mg/dL (74-106); Magnesium 1.7 mg/dL (1.8-2.4); Potassium 4.1 mmol/L (3.5-5.1); Sodium 139 mmol/L (136-145); Total Protein 6.9 g/dL (6.4-8.2)
== END 2022-10-04 23:59 | disposition home or self-care (01) ==
LOC: INF 01:40
PROVIDERS: Nurse Practitioner Family; PCP Internal Medicine; Visit Provider Internal Medicine Medical Oncology
DX: Z79.899 Other long term (current) drug therapy (principal); Z45.2 Encounter for adjustment and management of vascular access device; C34.12 Malignant neoplasm of upper lobe, left bronchus or lung
CPT/HCPCS: 36591; 80053; 83735; 84439; 84443; 85025

== ENCOUNTER 2022-11-04 03:17 | Outpatient (RCR) | payer MEDICARE, SELFPAY ==
[2022-10-12] MEDS: Normal Saline Flush 10 ML SYR IVP (12:00)
[2022-10-12 12:32] LABS: Abs Immature Grans 0.03 10^3/uL (0.0-0.06); Absolute Basophil Count 0.03 10^3/uL (0.0-0.2); Absolute Eosinophil Count 0.12 10^3/uL (0.0-0.7); Absolute Lymphocyte Count 1.27 10^3/uL (1.2-3.4); Absolute Monocyte Count 0.85 10^3/uL (0.1-0.8); Absolute Neutrophil Count 3.61 10^3/uL (1.2-6.7); Basophils % 0.5; HCT 29.2 % (36.0-46.0); HGB 9.8 g/dL (11.2-15.7); Immature Grans % 0.5; Lymphocytes % 21.5; MCH 30.9 pg (27.0-33.0); MCHC 33.6 % (32.0-36.0); MCV 92 fL (80-95); MPV 9.2 fL (8.0-11.0); Monocytes % 14.4; Neutrophils % 61.1; Platelet Count 343 10^3/uL (130-400); RBC 3.17 10^6/uL (3.93-5.22); RDW 13.4 % (11.7-14.6); RDW-SD 45.3 fL; WBC 5.91 10^3/uL (4.4-10.8)
[2022-10-12 13:17] LABS: ALT 18 U/L (14-59); AST 16 U/L (15-37); Albumin 3.4 g/dL (3.4-5.0); Alkaline Phosphatase 91 U/L (46-116); Anion Gap 6.9 mmol/L (3-11); BUN 16 mg/dL (7-18); Bilirubin, Total 0.2 mg/dL (0.2-1.0); CO2 27.1 mmol/L (21.0-32.0); CREATININE 0.8 mg/dL (0.55-1.02); Calcium 9.1 mg/dL (8.5-10.1); Chloride 103 mmol/L (98-107); Estimated GFR 76.79 (mL/min/1.73m2); FREE T4 1.32 ng/dL (0.76-1.46); Glucose 98 mg/dL (74-106); Magnesium 1.8 mg/dL (1.8-2.4); Potassium 3.9 mmol/L (3.5-5.1); Sodium 137 mmol/L (136-145); TSH 0.48 uIU/mL (0.36-3.74); Total Protein 7.4 g/dL (6.4-8.2)
[2022-11-04] MEDS: Normal Saline Flush 10 ML SYR IVP (12:47)
[2022-11-04 12:59] LABS: Abs Immature Grans 0.03 10^3/uL (0.0-0.06); Absolute Basophil Count 0.02 10^3/uL (0.0-0.2); Absolute Eosinophil Count 0.05 10^3/uL (0.0-0.7); Absolute Lymphocyte Count 1.08 10^3/uL (1.2-3.4); Absolute Monocyte Count 0.86 10^3/uL (0.1-0.8); Absolute Neutrophil Count 2.92 10^3/uL (1.2-6.7); Basophils % 0.4; HCT 29.4 % (36.0-46.0); HGB 9.9 g/dL (11.2-15.7); Immature Grans % 0.6; Lymphocytes % 21.8; MCHC 33.7 % (32.0-36.0); MCV 92 fL (80-95); MPV 8.9 fL (8.0-11.0); Monocytes % 17.3; Neutrophils % 58.9; Platelet Count 277 10^3/uL (130-400); RBC 3.19 10^6/uL (3.93-5.22); RDW 13.6 % (11.7-14.6); RDW-SD 46.7 fL; WBC 4.96 10^3/uL (4.4-10.8)
[2022-11-04 14:20] LABS: ALT 20 U/L (14-59); AST 17 U/L (15-37); Albumin 3.6 g/dL (3.4-5.0); Alkaline Phosphatase 96 U/L (46-116); Anion Gap 8.6 mmol/L (3-11); BUN 13 mg/dL (7-18); Bilirubin, Total 0.3 mg/dL (0.2-1.0); CO2 27.4 mmol/L (21.0-32.0); CREATININE 0.7 mg/dL (0.55-1.02); Calcium 9.2 mg/dL (8.5-10.1); Chloride 103 mmol/L (98-107); Estimated GFR 90.14 (mL/min/1.73m2); FREE T4 1.17 ng/dL (0.76-1.46); Glucose 112 mg/dL (74-106); Magnesium 1.9 mg/dL (1.8-2.4); Potassium 4.1 mmol/L (3.5-5.1); Sodium 139 mmol/L (136-145); TSH 0.88 uIU/mL (0.36-3.74); Total Protein 7.3 g/dL (6.4-8.2)
== END 2022-11-04 23:59 | disposition home or self-care (01) ==
LOC: INF 03:17
PROVIDERS: Nurse Practitioner Family; PCP Internal Medicine; Visit Provider Internal Medicine Medical Oncology
DX: Z79.899 Other long term (current) drug therapy (principal); Z45.2 Encounter for adjustment and management of vascular access device; C34.12 Malignant neoplasm of upper lobe, left bronchus or lung
CPT/HCPCS: 36591; 80053; 83735; 84439; 84443; 85025

== ENCOUNTER 2022-11-30 02:55 | Outpatient (RCR) | payer MEDICARE, SELFPAY ==
[2022-11-30] MEDS: Normal Saline Flush 10 ML SYR IVP (13:16)
[2022-11-30 13:55] LABS: Abs Immature Grans 0.02 10^3/uL (0.0-0.06); Absolute Basophil Count 0.04 10^3/uL (0.0-0.2); Absolute Eosinophil Count 0.21 10^3/uL (0.0-0.7); Absolute Lymphocyte Count 1.23 10^3/uL (1.2-3.4); Absolute Monocyte Count 0.83 10^3/uL (0.1-0.8); Absolute Neutrophil Count 2.97 10^3/uL (1.2-6.7); Basophils % 0.8; HCT 30.3 % (36.0-46.0); HGB 10.2 g/dL (11.2-15.7); Immature Grans % 0.4; Lymphocytes % 23.2; MCH 31.1 pg (27.0-33.0); MCHC 33.7 % (32.0-36.0); MCV 92 fL (80-95); MPV 9.5 fL (8.0-11.0); Monocytes % 15.7; Neutrophils % 55.9; Platelet Count 234 10^3/uL (130-400); RBC 3.28 10^6/uL (3.93-5.22); RDW 13.4 % (11.7-14.6); RDW-SD 45.8 fL
[2022-11-30 14:22] LABS: ALT 19 U/L (14-59); AST 17 U/L (15-37); Albumin 3.4 g/dL (3.4-5.0); Alkaline Phosphatase 88 U/L (46-116); Anion Gap 8.4 mmol/L (3-11); BUN 18 mg/dL (7-18); Bilirubin, Total 0.3 mg/dL (0.2-1.0); CO2 27.6 mmol/L (21.0-32.0); CREATININE 0.7 mg/dL (0.55-1.02); Calcium 8.9 mg/dL (8.5-10.1); Chloride 102 mmol/L (98-107); Estimated GFR 90.14 (mL/min/1.73m2); FREE T4 1.16 ng/dL (0.76-1.46); Glucose 110 mg/dL (74-106); Magnesium 1.9 mg/dL (1.8-2.4); Potassium 4.4 mmol/L (3.5-5.1); Sodium 138 mmol/L (136-145); TSH 0.62 uIU/mL (0.36-3.74); Total Protein 7.1 g/dL (6.4-8.2)
== END 2022-12-04 23:59 | disposition home or self-care (01) ==
LOC: INF 02:55
PROVIDERS: PCP Internal Medicine; Visit Provider Internal Medicine Medical Oncology
DX: Z79.899 Other long term (current) drug therapy (principal); C34.12 Malignant neoplasm of upper lobe, left bronchus or lung; Z45.2 Encounter for adjustment and management of vascular access device
CPT/HCPCS: 36591; 80053; 83735; 84439; 84443; 85025

== ENCOUNTER 2022-12-21 04:03 | Outpatient (RCR) | payer MEDICARE, SELFPAY ==
[2022-12-21 12:16] LABS: Abs Immature Grans 0.02 10^3/uL (0.0-0.06); Absolute Basophil Count 0.04 10^3/uL (0.0-0.2); Absolute Eosinophil Count 0.16 10^3/uL (0.0-0.7); Absolute Lymphocyte Count 1.08 10^3/uL (1.2-3.4); Absolute Monocyte Count 0.97 10^3/uL (0.1-0.8); Absolute Neutrophil Count 2.59 10^3/uL (1.2-6.7); Basophils % 0.8; Eosinophils % 3.3; HCT 29.7 % (36.0-46.0); HGB 10.1 g/dL (11.2-15.7); Immature Grans % 0.4; Lymphocytes % 22.2; MCH 31.1 pg (27.0-33.0); MCV 91 fL (80-95); MPV 8.7 fL (8.0-11.0); Neutrophils % 53.3; Platelet Count 275 10^3/uL (130-400); RBC 3.25 10^6/uL (3.93-5.22); RDW 13.1 % (11.7-14.6); RDW-SD 43.5 fL; WBC 4.86 10^3/uL (4.4-10.8)
[2022-12-21] MEDS: Normal Saline Flush 10 ML SYR IVP (12:16)
[2022-12-21 12:59] LABS: ALT 19 U/L (14-59); AST 18 U/L (15-37); Albumin 3.3 g/dL (3.4-5.0); Alkaline Phosphatase 81 U/L (46-116); Anion Gap 6.1 mmol/L (3-11); BUN 17 mg/dL (7-18); Bilirubin, Total 0.2 mg/dL (0.2-1.0); CO2 28.9 mmol/L (21.0-32.0); CREATININE 0.7 mg/dL (0.55-1.02); Calcium 8.7 mg/dL (8.5-10.1); Chloride 104 mmol/L (98-107); Estimated GFR 90.14 (mL/min/1.73m2); FREE T4 1.03 ng/dL (0.76-1.46); Glucose 102 mg/dL (74-106); Magnesium 1.8 mg/dL (1.8-2.4); Potassium 4.1 mmol/L (3.5-5.1); Sodium 139 mmol/L (136-145); TSH 0.54 uIU/mL (0.36-3.74); Total Protein 6.9 g/dL (6.4-8.2)
== END 2023-01-04 23:59 | disposition home or self-care (01) ==
LOC: INF 04:03
PROVIDERS: Nurse Practitioner Family; PCP Internal Medicine; Visit Provider Internal Medicine Medical Oncology
DX: Z79.899 Other long term (current) drug therapy (principal); C34.12 Malignant neoplasm of upper lobe, left bronchus or lung; Z45.2 Encounter for adjustment and management of vascular access device
CPT/HCPCS: 36591; 80053; 83735; 84439; 84443; 85025

== ENCOUNTER 2023-01-13 02:32 | Outpatient (RCR) | payer MEDICARE, SELFPAY ==
[2023-01-13] MEDS: Normal Saline Flush 10 ML SYR IVP (09:21)
[2023-01-13 09:30] LABS: Abs Immature Grans 0.03 10^3/uL (0.0-0.06); Absolute Basophil Count 0.04 10^3/uL (0.0-0.2); Absolute Eosinophil Count 0.12 10^3/uL (0.0-0.7); Absolute Lymphocyte Count 1.15 10^3/uL (1.2-3.4); Absolute Monocyte Count 1.01 10^3/uL (0.1-0.8); Absolute Neutrophil Count 3.16 10^3/uL (1.2-6.7); Basophils % 0.7; Eosinophils % 2.2; HGB 9.7 g/dL (11.2-15.7); Immature Grans % 0.5; Lymphocytes % 20.9; MCH 30.6 pg (27.0-33.0); MCHC 33.4 % (32.0-36.0); MCV 92 fL (80-95); MPV 8.9 fL (8.0-11.0); Monocytes % 18.3; Neutrophils % 57.4; Platelet Count 271 10^3/uL (130-400); RBC 3.17 10^6/uL (3.93-5.22); RDW 13.9 % (11.7-14.6); RDW-SD 46.3 fL; WBC 5.51 10^3/uL (4.4-10.8)
[2023-01-13 09:55] LABS: ALT 18 U/L (14-59); AST 17 U/L (15-37); Albumin 3.4 g/dL (3.4-5.0); Alkaline Phosphatase 81 U/L (46-116); BUN 20 mg/dL (7-18); Bilirubin, Total 0.2 mg/dL (0.2-1.0); CREATININE 0.8 mg/dL (0.55-1.02); Chloride 107 mmol/L (98-107); Estimated GFR 76.79 (mL/min/1.73m2); FREE T4 0.98 ng/dL (0.76-1.46); Glucose 95 mg/dL (74-106); Potassium 4.7 mmol/L (3.5-5.1); Sodium 142 mmol/L (136-145); TSH 2.31 uIU/mL (0.36-3.74); Total Protein 6.9 g/dL (6.4-8.2)
== END 2023-02-04 23:59 | disposition home or self-care (01) ==
LOC: INF 02:32
PROVIDERS: Nurse Practitioner Family; PCP Internal Medicine; Visit Provider Internal Medicine Medical Oncology
DX: C34.12 Malignant neoplasm of upper lobe, left bronchus or lung (principal); Z79.899 Other long term (current) drug therapy; Z45.2 Encounter for adjustment and management of vascular access device
CPT/HCPCS: 36591; 80053; 83735; 84439; 84443; 85025

== ENCOUNTER 2023-02-22 04:09 | Outpatient (RCR) | payer MEDICARE, SELFPAY ==
[2023-02-22] MEDS: Normal Saline Flush 10 ML SYR IVP (12:10)
[2023-02-22 12:20] LABS: Abs Immature Grans 0.04 10^3/uL (0.0-0.06); Absolute Basophil Count 0.01 10^3/uL (0.0-0.2); Absolute Eosinophil Count 0.04 10^3/uL (0.0-0.7); Absolute Lymphocyte Count 0.78 10^3/uL (1.2-3.4); Absolute Monocyte Count 0.54 10^3/uL (0.1-0.8); Basophils % 0.2; Eosinophils % 0.9; HCT 30.5 % (36.0-46.0); HGB 10.1 g/dL (11.2-15.7); Immature Grans % 0.9; Lymphocytes % 18.4; MCH 31.1 pg (27.0-33.0); MCHC 33.1 % (32.0-36.0); MCV 94 fL (80-95); MPV 9.1 fL (8.0-11.0); Monocytes % 12.8; Neutrophils % 66.8; Platelet Count 146 10^3/uL (130-400); RBC 3.25 10^6/uL (3.93-5.22); RDW 14.5 % (11.7-14.6); RDW-SD 50.4 fL; WBC 4.23 10^3/uL (4.4-10.8)
[2023-02-22 12:21] LABS: Absolute Neutrophil Count 2.83 10^3/uL (1.2-6.7)
[2023-02-22 12:48] LABS: ALT 29 U/L (14-59); AST 17 U/L (15-37); Albumin 2.9 g/dL (3.4-5.0); Alkaline Phosphatase 90 U/L (46-116); Anion Gap 7.5 mmol/L (3-11); BUN 16 mg/dL (7-18); Bilirubin, Total 0.4 mg/dL (0.2-1.0); CO2 28.5 mmol/L (21.0-32.0); CREATININE 0.9 mg/dL (0.55-1.02); Calcium 9.2 mg/dL (8.5-10.1); Chloride 101 mmol/L (98-107); Estimated GFR 66.67 (mL/min/1.73m2); FREE T4 1.21 ng/dL (0.76-1.46); Glucose 100 mg/dL (74-106); Potassium 4.3 mmol/L (3.5-5.1); Sodium 137 mmol/L (136-145); TSH 1.26 uIU/mL (0.36-3.74); Total Protein 6.8 g/dL (6.4-8.2)
== END 2023-03-06 23:59 | disposition home or self-care (01) ==
LOC: INF 04:09
PROVIDERS: Nurse Practitioner Family; PCP Internal Medicine; Visit Provider Internal Medicine Medical Oncology
DX: C34.12 Malignant neoplasm of upper lobe, left bronchus or lung (principal); Z79.899 Other long term (current) drug therapy; Z45.2 Encounter for adjustment and management of vascular access device
CPT/HCPCS: 36591; 80053; 83735; 84439; 84443; 85025